=== PATIENT | female | born 1965 | race Caucasian/White ===

== ENCOUNTER 2022-03-27 09:47 | Outpatient (CLI) | payer BC, SELFPAY ==
[2022-03-27 14:10] LABS: Albumin* 4.6 g/dL (3.3-5.0)
[2022-03-27 14:11] LABS: Chloride* 101 mmol/L (96-114); Potassium* 4.9 mmol/L (3.6-5.1)
[2022-03-27 14:13] LABS: Bilirubin Total* 0.6 mg/dL (0.1-1.5); Carbon Dioxide* 30 mmol/L (20-32); Cholesterol* 216 mg/dL (90-199); Creatinine* 0.9 mg/dL (0.5-1.5); Estimated Glomerular Filt Rate 75 ml/min
[2022-03-27 14:14] LABS: Alanine Aminotransferase* 24 U/L (4-35); Alkaline Phosphatase* 64 U/L (40-150); Aspartate Amino Transferase* 29 U/L (12-35); Blood Urea Nitrogen* 12 mg/dL (7-30); Calcium* 9.8 mg/dL (8.4-10.6); Glucose* 92 mg/dL (60-115); HDL Cholesterol* 100 mg/dL (>=50); LDL Cholesterol Calculated 103 mg/dL (<100); Total Protein* 7.1 g/dL (6.0-8.3); Triglycerides* 66 mg/dL (40-149)
[2022-03-27 14:48] LABS: Sodium* 139 mmol/L (135-149)
[2022-03-27 14:59] LABS: Vitamin B12* 724 pg/mL (243-894)
== END 2022-03-27 09:48 | disposition home or self-care (01) ==
PROVIDERS: PCP Physician Assistant Medical; Visit Provider Physician Assistant Medical
DX: Z00.00 Encounter for general adult medical examination without abnormal findings (principal); I10 Essential (primary) hypertension; M79.601 Pain in right arm; R53.1 Weakness; M54.30 Sciatica, unspecified side; R29.898 Other symptoms and signs involving the musculoskeletal system
CPT/HCPCS: 80053; 80061; 82607

== ENCOUNTER 2022-06-26 17:29 | Outpatient (CLI) | payer BC, SELFPAY ==
--- OUTSIDE RECORDS SUMMARY | 2022-06-26 17:32 | XMS_ITS ---
:1965 Author Care Team Providers Name Role Phone Jose Garcia Primary Care Provider Unavail able Allergies Code Code System Name Reaction Severity Status Onset NKDA ? Medications Name Status Start Date Stop Date ? ? methocarbamol 500 mg tablet Active ? Not available TAKE 2 TABLETS BY MOUTH EVERY DAY AT BEDTIME Problems Name Status Onset Date Source ? 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 Myofascial Pain Active 11/20/2017 ? Procedures Date Name Performed by ? 02/06/1995 Cholecystectomy Information not avai lable 08/18/1994 Caesarean Section Information not avai lable 11/20/2017 XR, Orthopantogram [facility] [address] [place] [id number] (Work Place) Results Lab Results Date Name Specimen Result Interpretation Description Value Range Status Address ? ? XR, Orthopantogram ? No observation ? ? ? [place]: [address] ? [employer] ? No observation ? ? ? [place]: [address], [place] Past Encounters None recorded. Social History Tobacco Smoking Status Never Smoker Vaccine List Notes: 12-27-2017 Plan of Care Reminders Provider Appointments None recorded. ? ? Lab None recorded. ? ? Referral None recorded. ? ? Procedures None recorded. ? ? Surgeries None recorded. ? ? Imaging None recorded. ? ? Vitals 05/12/2018 09:00AM FOLLOW UP 30 Height Weight BMI Blood Pressure 5 ft 9 in 207 lbs 30.6 kg/m2 141/98 mm[Hg] 02/07/2018 11:00AM FOLLOW UP 30 Height Weight BMI Blood Pressure 5 ft 9 in 207 lbs 30.6 kg/m2 156/99 mm[Hg] 12/27/2017 11:00AM FOLLOW UP 30 Height Weight BMI Blood Pressure 5 ft 9 in 207 lbs 30.6 kg/m2 138/86 mm[Hg]
--- NOTE | 2022-06-26 18:00 | CRLHL7_ITS ---
For Patients: As a result of the Century Cures Act, medical imaging exams and procedure reports are released immediately into your electronic medical record. You may view this report before your referring provider. If you have questions, please contact your health care provider. BILATERAL SCREENING MAMMOGRAM WITH COMPUTER-AIDED DETECTION AND TOMOSYNTHESIS TECHNIQUE: CC and MLO views were obtained. These mammographic images have been obtained using full-field digital technique. These mammographic images were interpreted with the benefit of computer-aided detection. Breast Tomosynthesis was used in this interpretation. COMPARISON FILM: 04/12/2021, 12/10/2019, 11/19/2018. FINDINGS: There are scattered areas of fibroglandular density IMPRESSION: There is no radiographic evidence for malignancy. ASSESSMENT: BI-RADS Category 1: Negative RECOMMENDATION: Routine screening mammogram in 1 year. A lay language report of this examination will be provided to the patient. Khoa Morris M.D. Diagnostic Radiologist [email or web address] Transcribed: 4:14 pm DW/Dictated by: Khoa Morris MD @ 06/27/2022 8:41:00 AM (Electronically Signed)
== END 2022-06-26 17:30 | disposition home or self-care (01) ==
LOC: MAMMO 17:30
PROVIDERS: PCP Physician Assistant Medical; Visit Provider Physician Assistant Medical
DX: Z12.31 Encounter for screening mammogram for malignant neoplasm of breast (principal)
CPT/HCPCS: 77063; 77067

== ENCOUNTER 2022-08-01 15:30 | Outpatient (RCR) | payer BC, SELFPAY ==
--- NOTE | 2022-04-11 17:33 | OT.OPOE ---
OT Outpatient Ortho Eval OT Outpatient Ortho Eval Start: 04/11/22 16:44 Freq: Status: Active Protocol: Document 04/11/22 16:44 LCN (Rec: 04/11/22 17:28 LCN Desktop) E-signed By Poppy Tejeda, OTR/L, CLT OT OP Ortho Eval Details Type Type Eval Complexity Low Outpatient History/Precautions Insurance Information Insurance Information Blue Cross/Blue Shield Current Condition/Medical Diagnosis Referring Provider Marlena Mendez PA-C Treatment Diagnosis R elbow pain, hand weakness Date of Onset 04/09/22 Medical Conditions HTN Other Conditions Family history of Parkinsons w LBD/maternal. Seeing PT for sciatica also. H/O of R lateral epicondylitis 5 years ago w good recovery until now. Medical/Functional History Medical History Reviewed Yes Prior Level of Function/Mobility [place]. They have grown children 27 y/o son and 24 y/o sons in [facility]. Dtr 24 in [place]/studying fish / wildlife mgmt. 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 Critical Job Demands Pull,Lift,Overhead Reach, Static Sitting Other Critical Job Demands typing, mousing Hobbies horseback riding, horse tacking/grooming, heavy feed/ water mgmt Fitness horseback riding, competitions . Oriented Mental Status No Concerns Ortho Subjective Subjective Subjective Jewels Mauricio is a youthful 57 y/o female who has been noticing increasing pain in R elbow and hand weakness through this summer, getting harder to move 5 gallon buckets of water across yard, R hand tires easily with writing, more effort legibility, typing. R medial elbow sore to rest on arm rests/tables, no numbness. Pain Assessment Pain Present Pain Present Pain Reported Location R Elbow Description Burning,Dull, Achy,Throbbing, Pulling,With Movement, Heaviness Intensity 4 Goniometric Comments Goniometric Comments Goniometric Comments R Gripping 95# w 2/10 medial epicondyle pain in pos 1 and pos 2 similar. Improves to 100#, no pain with elbow counterpressure cuff in place. L Night Supervisor is 95 pos 1 and 90 pos 2. [place] pinch is 16# B. 3 pt pinch is 22# B; Has base of R CMC tenderness during 3 pt pinch. ROM-- Is WNL for all planes, except hyper mobile pattern at WR FL, touches TH to Radius B. No history of shoulder dislocations. MMT-- Balanced strength for triceps, sup/pronation, WE, WF , RD and UD. Tender of lateral epicondyle with resisted pronation and biceps flexion, w 5-/5 MMT. Edema Assessment Additional Information Comments Has point tenderness at tricep insert, ulnar groove, upper CET, upper common flexor tendon 1/3 of muscle bulk, base of R CMC. OT Objective Data Sensation Sensation Assessment Summary Comments Has mild numbness patch at palmar wrist crease. Notes tremor is small finger during long holds of digit + wrist extension. Upper Extremity Special Tests Tenosynovitis Wrist Finklestein Test Negative Left,Negative Right Ulnar Nerve Froment's Sign Negative Left,Negative Right OT Problems Problems Problems Decreased Strength,Decreased Range of Motion,Decreased Fine Motor,Sensory Sensitivity, Lifting,Gripping Other Problems Writing,Computer Patient Potential Excellent Assessment Assessment Assessment Given Jewels's diagnosis of R epicondylitis (mixed, alternating pattern between R lateral/medial sides, periscapular tightness, CMC pain, mild wrist numbness and hypermobility of R WR FL) and ?difficulty with edema, pain, ROM and strength endurance loss of R hand/wrist/elbow , she would benefit from skilled OT to address these areas. Occupational Therapy Treatment Plan - OP Potential Rehabilitation Potential Excellent Set Goals Goals Set with Patient Yes Goals Goals In 8 weeks, pt will demonstrate:? 1) Decreased pn to <2/10 80% of the time with sustained gripping, carrying feed/water, writing and typing. 2) I HEP for stretching, gradual strengthening and self mgmt strategies. 3) improved carrying of 40# water pails, writing endurance /legibility x 10 min with R elbowm thumb pain < 1/10. 4) ??Pt to be fit with functional bracing (for CMC, wrist, elbow) and use adaptive strategies to protect joint integrity to support less pain with ADL. Progress set Treatment Plan Treatment Plan Evaluation,Edema Control, Iontophoresis,Joint Mobilization,Manual Therapy, Splinting,Ultrasound, Therapeutic Activities,Self- Care/Home Management,Education Expected Frequency 1-2x Week Expected Duration 6-8 Weeks Comment Summary Scapular stretches, scapular mobilty, check Durkan's and CMC scrub test, plasticator endurance x 5 reps, hand writing speed/ legibility, Look at Pilates/ Fitness. Certification Certification I Certify That: Therapy Services Provided, Therapy Plan Established, Therapy Plan Reviewed
--- NOTE | 2022-08-01 17:09 | OT.OPODN ---
OT Outpatient Ortho Daily Note OT Outpatient Ortho Daily Note Start: 04/11/22 16:44 Freq: Status: Active Protocol: Document 08/01/22 16:35 LCN (Rec: 08/01/22 17:05 LCN Desktop) E-signed By Poppy Tejeda, OTR/L, CLT Type of Note Type of Note Type of Note Daily Note,Discharge Note Visit Number [id number] Insurance Information Insurance Information Blue Cross/Blue Shield Outpatient History/Precautions Current Condition/Medical Diagnosis Referring Provider Marlena Mendez PA-C Treatment Diagnosis R elbow pain, hand weakness Date of Onset 04/09/22 Medical Conditions HTN Other Conditions Family history of Parkinsons w LBD/maternal. Seeing PT for sciatica also. H/O of R lateral epicondylitis 5 years ago w good recovery until now. Medical/Functional History Medical History Reviewed Yes Prior Level of Function/Mobility [place]. They have grown children 27 y/o son and 24 y/o sons in [facility]. 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 Critical Job Demands Pull,Lift,Overhead Reach, Static Sitting Other Critical Job Demands typing, mousing Hobbies horseback riding, horse tacking/grooming, heavy feed/ water mgmt Fitness horseback riding, competitions . Oriented Mental Status No Concerns Mental Status Comments Wants to start doing physical training, no current fitness regimen. Ortho Subjective Subjective Subjective Pt has seen chiropractor Priscila Dupree for additional visits, massage therapy 2x/ month ( working on R anterior scapula tilt, flattened thoracic kyphosis, continues to have fatigue that happens in RF/SF. Finding these modalities find helpful, working on adjustments cervical to R wrist. Continues with her HEP, added wall angle, do ing well with knee based plank holds x 10 deep breaths 3 sets. Has very occasional tender twinges at medial epicondyle, while opening barn door, moving feed pails, pouring coffee). Pt estimates return to 75%. Pain Assessment Pain Present Pain Present Pain Reported Location R Elbow Description Dull, Achy,Throbbing,Pulling, With Movement Intensity 1 OT OP Daily Ortho Note/Assessment Self-Care/Home Management Self-Care/Home Management Minutes ( 0 minutes) Self-Care/Home Management Comments . Therapeutic Exercise Therapeutic Exercise Minutes (minutes) 5 Therapeutic Exercise Comments Reviewed wall harry and plank holds from knees with scapulae applied to rib cage ( good form no tactile or verbal cues needed), holding for 10 breath cycles per set. Progressed to toe level. Ultrasound Intensity (w/cm2) 0 Ultrasound Comments as needed to support reduction of edema for tissue healing and improved tissuemobility Iontophoresis Iontophoresis Duration (minutes) 0 Manual Therapy Manual Therapy Minutes (minutes) 32 Manual Therapy Comments OTR cont STM MFR, pin and stretch techniques to mobilize soft tissue surrounding joint capsule,?ligament structures and muscle groups to support freedom of movement and healing of structures of the R rhomboid, levator, scalenes, clavicular space, pec minor, teres minor, to long head of triceps, extensor mcscle bulk and latissimus dorsi. Goniometric Comments Goniometric Comments Goniometric Comments 08/01/22-- Risk Advisor in 1st position is 82# R and 80# L, no pain. Pos 2 is 98# R and 85# L. [place] pinch is 21# R and 17# L. 3pt pinch is 21# B. RF/SF to TH pinch is 16.5 # R and 14# L. MMT of RF/SF adduction has medium pressure R and strong pressure L. MMT for all wrist elbow and shoulder planes is 5/5. 06/05/22-- MMT of of WR EX, FL , RD, UD, supination, pronation are balanced, 5/5 MMT no pain. Weakness noted at ulnar intrinsics, improving . 05/29/22-- 3 pt pinch 24# R and 23# L. 3 pt RF/SF 14# R and 18 # L. 05/25/22-- Risk Advisor pos 1 92#. Pos 2- 96#, no painkey [pinch 20# R and 3 pt is 21# R. Capillary refill delayed on R RF/SF. MMT balanced non painful for WR EX, FL RD< UD and sup and pronation planes. Adductors at RF/SF weak, Mild hypertrophy at hypo thenar eminance. No provocation with ulnar nerve glides. Has life long Raynauds. 04/23/22-- Check of process inspector fatigue 5 reps 95/90/85/90/90 R and 90/85/90/90/85 L. Handwriting speed 104 characters in 1 minute, WNL is 70-100, Legibility is 18/20, pt satisified. 04/18/22- Risk Advisor strength in pos 1 improves to 90 # (from 86# at start of session) and pos 2 to 110 (from 85) with k taping in place. NO pain with process inspector testing. 9 hole peg test 18.4 L and 18.9 sec R ( WNL level is 18-19) 04/11/22- R Gripping 95# w 2/10 medial epicondyle pain in pos 1 and pos 2 similar. Improves to 100#, no pain with elbow counterpressure cuff in place. L Risk Advisor is 95 pos 1 and 90 pos 2. Westbrook pinch is 16 # B. 3 pt pinch is 22# B; Has base of R CMC tenderness during 3 pt pinch. ROM-- Is WNL for all planes, except hyper mobile pattern at WR FL, touches TH to Radius B. No history of shoulder dislocations. MMT-- Balanced strength for triceps, sup/pronation, WE, WF , RD and UD. Tender of lateral epicondyle with resisted pronation and biceps flexion, w 5-/5 MMT. Edema Assessment Additional Information Comments Has point tenderness at tricep insert, ulnar groove, upper CET, upper common flexor tendon 1/3 of muscle bulk, base of R CMC. Upper Extremity Special Tests Tenosynovitis Wrist Finklestein Test Negative Left,Negative Right Ulnar Nerve Froment's Sign Negative Left,Negative Right Upper Extremity Special Tests Comments Comments HEP-- 07/19/22-- plank holds from knees with scapulae applied to rib cage 06/26/22-- posterior axilla, modified down dog with elbows supported 05/29/22-- foam rolling hip to teres minor to triceps margin 05/25/22-- Putty red intrinsics , hooked flexion, flat fist, adductors, and gross digit extension. 05/18/22-- biceps and triceps punch. Stacking ribs over pelvis 05/09/22-- Cervical lat flex + door way pec stetch 04/30/22- [place] band EX/FL/ RD/UD. 04/23/22-- eccentric lowering WR EX, WR FL and hammer turns 16 oz. 04/18/22 pink putty process inspector, 20 pt, 2pt , westbrook. OT Problems Problems Problems Decreased Strength,Decreased Range of Motion,Decreased Fine Motor,Sensory Sensitivity, Lifting,Gripping Other Problems Writing,Computer Patient Potential Excellent Assessment Assessment Assessment Pt has one more session before discharge. Feels god to be able to progress to core strengthening. Given Jewels's diagnosis of R epicondylitis (mixed, alternating pattern between R lateral/medial sides, periscapular tightness, CMC pain, mild wrist numbness and hypermobility of R WR FL) and ?difficulty with edema, pain, ROM and strength endurance loss of R hand/wrist/elbow , she would benefit from skilled OT to address these areas. Occupational Therapy Treatment Plan - OP Potential Rehabilitation Potential Excellent Set Goals Goals Set with Patient Yes Goals Goals In 8 weeks, pt will demonstrate:? 1) Decreased pn to <2/10 80% of the time with sustained gripping, carrying feed/water, writing and typing. 2) I HEP for stretching, gradual strengthening and self mgmt strategies. 3) improved carrying of 40# water pails, writing endurance /legibility x 10 min with R elbowm thumb pain < 1/10. 4) ??Pt to be fit with functional bracing (for CMC, wrist, elbow) and use adaptive strategies to protect joint integrity to support less pain with ADL. Progress set Treatment Plan Treatment Plan Evaluation,Edema Control, Iontophoresis,Joint Mobilization,Manual Therapy, Splinting,Ultrasound, Therapeutic Activities,Self- Care/Home Management,Education Expected Frequency 1-2x Week Expected Duration 6-8 Weeks Comment Summary Check check suboccipital ridge , UE traction and rib cage MFR . Scapular stretches, scapular mobility, check SF/RF pinch, hand writing speed/ legibility, Look at Pilates/ Fitness. OT Treatment Minutes Treatment Minutes Untimed Treatment Minutes 0 Timed Treatment Minutes 37 Total Treatment Minutes 37 Occupational Therapy Billing Units Billing Units Iontophoresis 0 Manual Therapy 2 Self Care/Home Management 0 Therapeutic Exercise 0 Ultrasound 0 Certification Certification I Certify That: Therapy Services Provided, Therapy Plan Established, Therapy Plan Reviewed Discharge Note Discharge Note Discharge Summary After 21 visits of skilled OT Jewels demonstrates:? 1) Decreased pn to <2/10 80% of the time with sustained gripping, carrying feed/water, writing and typing. (GOAL MET --Pt has seen chiropractor Priscila Dupree for additional visits, massage therapy 2x/ month ( working on R anterior scapula tilt, flattened thoracic kyphosis, continues to have fatigue that happens in RF/SF. Finding these modalities find helpful, working on adjustments cervical to R wrist. Continues with her HEP, added wall angle, do ing well with knee based plank holds x 10 deep breaths 3 sets. Has very occasional tender twinges at medial epicondyle, while opening barn door, moving feed pails, pouring coffee). Pt estimates return to 75%. 2) I HEP for stretching, gradual strengthening and self mgmt strategies. (GOAL MET 06/13) 3) improved carrying of 40# water pails, writing endurance /legibility x 10 min with R elbow/ thumb pain < 1/10. ( Still has twinges of pain, and RF/SF endurance issues with typing, writing, but improved. Risk Advisor in 1st position is 82# R and 80# L, no pain. Pos 2 is 98# R and 85# L. [place] pinch is 21# R and 17# L. 3pt pinch is 21# B. RF/SF to TH pinch is 16.5 # R and 14# L. MMT of RF/SF adduction has medium pressure R and strong pressure L. MMT for all wrist elbow and shoulder planes is 5/5. ). 4) ??Pt to be fit with functional bracing (for CMC, wrist, elbow) and use adaptive strategies to protect joint integrity to support less pain with ADL. (Uses elbow counter pressure cuff for heavy lifting, shovelling tasks) Date of First Visit for Therapy 04/11/22 Date of Last Visit for Therapy 08/01/22 Initial Primary Functional Limitations/ From al 04/11/22--Jewels Concerns Hang is a youthful 57 y/o female who has been noticing increasing pain in R elbow and hand weakness through this summer, getting harder to move 5 gallon buckets of water across yard, R hand tires easily with writing, more effort legibility, typing. R medial elbow sore to rest on arm rests/tables, no numbness. Initial Pain Level 4 Pain Level at Discharge 1 Interventions Provided During Treatment Heat,Ice/Cold/Vasopneumatic, Iontophoresis,Joint Mobilization,Manual Therapy, Orthotics/Braces,Therapeutic Exercise,Ultrasound,Self Care/ Home Management Recommendations/Reason for Discharge Met All Therapy Goals,Progress Cont w/HEP Discharge Instructions Sx not fully resolved. Will continue to address thoracic flattened kyphosis, anterior scap position w R with massage therapy and chiropractic approaches.
== END 2022-09-05 14:28 | disposition home or self-care (01) ==
PROVIDERS: PCP Physician Assistant Medical; Visit Provider Physician Assistant Medical
DX: M54.40 Lumbago with sciatica, unspecified side (principal); Z51.89 Encounter for other specified aftercare
CPT/HCPCS: 97033; 97035; 97110; 97140; 97161; 97165; 97535; X5282

== ENCOUNTER 2022-11-22 07:40 | Outpatient (CLI) | payer BC, SELFPAY ==
--- NOTE | 2022-11-22 08:00 | CRLHL7_ITS ---
For Patients: As a result of the Century Cures Act, medical imaging exams and procedure reports are released immediately into your electronic medical record. You may view this report before your referring provider. If you have questions, please contact your health care provider. INDICATION: Chronic shoulder pain. TECHNIQUE: Axial T1 and PD fat-sat, coronal PD, T2 and PD fat sat and sagittal PD and T2 left shoulder sequences. FINDINGS: Rotator cuff: Thin low grade interstitial tear of the supraspinatus. Some minor surrounding tendinosis. No high-grade partial or full-thickness tear. Infraspinatus and teres minor are normal. Subscapularis has some minimal tendinosis along the margins and in the substance at the insertion. No muscle atrophy or edema. - Acromioclavicular joint and coracoacromial arch: Flat type 1 acromial undersurface. Acromial humeral distance is 6 mm. Normal thickness of the coracoacromial ligament. Trace fluid and edema in the bursa. Small joint effusion and capsular hypertrophy with subchondral edema and cysts the moderately degenerated AC joint. Joint hypertrophy and osteophyte slightly indent the supraspinatus. Intact coracoclavicular ligaments. Subcoracoid interval is 6 mm. - Biceps labral complex: Within limitations of a non arthrogram study labral signal and morphology appear normal with intact anchor and appropriately located biceps tendon. - Glenohumeral joint: Anatomic alignment. Uniform cartilage. Physiologic fluid. No capsulitis. - Bones and soft tissues: Deltoid bulk and signal is normal. No fracture or bone lesion. Visualized axilla is clear. 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 Minor tendinopathy of the supraspinatus with a short linear interstitial low-grade partial tear of the substance posterior distal tendon. Dictated by Lizandro Vines MD @ 11/22/2022 4:53:49 PM (Electronically Signed)
--- NOTE | 2022-11-22 08:30 | CRLHL7_ITS ---
For Patients: As a result of the Century Cures Act, medical imaging exams and procedure reports are released immediately into your electronic medical record. You may view this report before your referring provider. If you have questions, please contact your health care provider. INDICATION: Right arm weakness. TECHNIQUE: Multiplanar multisequence noncontrast MR images acquired through the cervical spine. COMPARISON: None. FINDINGS: Mild straightening of the cervical lordosis. Mild rightward cervical curvature. Vertebral heights preserved. No acute fracture. No T1 hypointense marrow replacing lesions or marrow edema. The cervical cord is normal in signal intensity. C2-3: No spinal canal or neural foraminal narrowing. C3-4: Shallow posterior disc osteophyte complex. Right greater left uncinate spurring. No spinal canal narrowing. Minimal right without left neural foraminal narrowing. C4-5: Minimal uncinate spurring. [id number] right and mild left facet arthropathy. No spinal canal or neural foraminal narrowing. C5-6: Mild retrolisthesis. Moderate disc height loss. Broad-based posterior disc osteophyte complex. Thickening ligamentum flavum. Bilateral uncinate spurring. Mild facet arthropathy. Mild spinal canal narrowing. [id number] left and mild right neural foraminal narrowing. C6-7: Disc degeneration and mild disc height loss. Shallow posterior disc osteophyte complex. Bilateral uncinate spurring. Mild facet arthropathy. No spinal canal narrowing. Mild right without left neural foraminal narrowing. C7-T1: Trace anterolisthesis. Moderate facet arthropathy. No spinal canal or neural foraminal narrowing. IMPRESSION: 1. Multilevel cervical spondylosis without high-grade spinal canal or neural foraminal stenosis. 2. At C5-6, mild to moderate left and mild right neural foraminal narrowing. 3. At C7-T1, moderate bilateral facet arthropathy. Dictated by Caesar Gibson MD @ 11/22/2022 10:01:39 PM (Electronically Signed)
--- NOTE | 2022-11-22 09:15 | CRLHL7_ITS ---
For Patients: As a result of the Century Cures Act, medical imaging exams and procedure reports are released immediately into your electronic medical record. You may view this report before your referring provider. If you have questions, please contact your health care provider. INDICATION: Back pain. Radiculopathy. TECHNIQUE: Multiplanar multisequence noncontrast MR images acquired through the lumbar spine. COMPARISON: None. FINDINGS: The lumbar lordosis is preserved. Vertebral heights maintained. No acute fracture. No T1 hypointense marrow replacing lesions or marrow edema. Normal conus terminates at L1-2. T12-L1 and L1-2: No spinal canal or neural foraminal narrowing. L2-3: Shallow posterior disc bulge. Mild facet arthropathy. No spinal canal or neural foraminal narrowing. L3-4: Mild disc degeneration and disc height loss. Shallow posterior disc bulge. Dorsal annular fissure. Mbwg-sm-idcmfljx facet arthropathy. Mild spinal canal and lateral recess narrowing. Alwk-mp-udpiddez bilateral neural foraminal narrowing. L4-5: Grade 1 anterolisthesis measuring 4 mm. Mild disc degeneration. Shallow posterior disc bulge. Advanced bilateral facet arthropathy. Mild spinal canal and lateral recess narrowing. Eorw-xi-ninjpurk bilateral neural foraminal narrowing. L5-S1: Mild disc degeneration. Advanced right and moderate left facet arthropathy. No spinal canal or neural foraminal narrowing. Sacroiliac joint degenerative changes. IMPRESSION: 1. Multilevel lumbar spondylosis without spinal canal stenosis. 2. At L3-4, dxxa-hx-mxtjlvxn bilateral neural foraminal narrowing. 3. At L4-5, mild to moderate bilateral neural foraminal narrowing. Grade 1 anterolisthesis and advanced facet arthropathy. 4. At L5-S1, advanced right and moderate left facet arthropathy. Dictated by Caesar Gibson MD @ 11/22/2022 10:07:49 PM (Electronically Signed)
== END 2022-11-22 07:41 | disposition home or self-care (01) ==
LOC: MRI 07:41
PROVIDERS: PCP Physician Assistant Medical; Visit Provider Physician Assistant Medical
DX: M25.511 Pain in right shoulder (principal); M47.896 Other spondylosis, lumbar region; M51.26 Other intervertebral disc displacement, lumbar region; M47.812 Spondylosis without myelopathy or radiculopathy, cervical region; M50.23 Other cervical disc displacement, cervicothoracic region; M19.011 Primary osteoarthritis, right shoulder; R29.898 Other symptoms and signs involving the musculoskeletal system; M54.30 Sciatica, unspecified side; M54.9 Dorsalgia, unspecified
CPT/HCPCS: 72141; 72148; 73221

== ENCOUNTER 2023-01-17 13:47 | Outpatient (REF) | payer BC, SELFPAY ==
[2023-01-17 17:27] LABS: Free T4 Free Thyroxine* 1.05 ng/dL (0.70-1.85)
[2023-01-18 15:47] LABS: Ceruloplasmin 24 mg/dL (16-45)
[2023-01-18 20:54] LABS: Copper, Serum/Plasma 114.9 ug/dL (80.0-155.0)
== END 2023-01-17 13:48 | disposition home or self-care (01) ==
LOC: NPINS 13:47
PROVIDERS: PCP Physician Assistant Medical; Visit Provider Psychiatry & Neurology Neurology
DX: R29.898 Other symptoms and signs involving the musculoskeletal system (principal); R27.9 Unspecified lack of coordination; R20.0 Anesthesia of skin; R53.1 Weakness
CPT/HCPCS: 82390; 82525; 84439; 84443

== ENCOUNTER 2023-01-28 09:09 | Outpatient (CLI) | payer BC, SELFPAY ==
--- NOTE | 2023-01-28 09:15 | CRLHL7_ITS ---
For Patients: As a result of the Century Cures Act, medical imaging exams and procedure reports are released immediately into your electronic medical record. You may view this report before your referring provider. If you have questions, please contact your health care provider. INDICATION: Leg weakness. Incoordination. TECHNIQUE: Multiplanar multisequence noncontrast MR images acquired through the brain. COMPARISON: None. FINDINGS: Prominence of the ventricles and sulci compatible with minimal diffuse cerebral volume loss. No mass effect or midline shift. No parenchymal signal abnormalities. No diffusion restriction to suggest acute infarction. No intracranial hemorrhage or pathologic extra-axial fluid collection. The major arterial flow voids of the skullbase are preserved. The globes are symmetric. Mild right maxillary sinus mucosal thickening. Trace left mastoid fluid. IMPRESSION: No acute infarction, mass effect, or intracranial hemorrhage. Dictated by Caesar Gibson MD @ 01/28/2023 10:16:01 AM (Electronically Signed)
== END 2023-01-28 09:10 | disposition home or self-care (01) ==
LOC: MRI 09:11
PROVIDERS: PCP Physician Assistant Medical; Visit Provider Psychiatry & Neurology Neurology
DX: R27.9 Unspecified lack of coordination (principal); R53.1 Weakness; R29.898 Other symptoms and signs involving the musculoskeletal system; R20.0 Anesthesia of skin
CPT/HCPCS: 70551

== ENCOUNTER 2023-04-01 08:10 | Outpatient (CLI) | payer BC, SELFPAY | END 2023-04-01 08:11 | disposition home or self-care (01) | LOC: NFLDREF 04-03 02:05 | PROVIDERS: PCP Physician Assistant Medical; Referring Provider Physician Assistant Medical; Visit Provider Physician Assistant Medical | DX: Z00.00 Encounter for general adult medical examination without abnormal findings (principal); I10 Essential (primary) hypertension; F41.9 Anxiety disorder, unspecified; R29.898 Other symptoms and signs involving the musculoskeletal system; Z13.6 Encounter for screening for cardiovascular disorders | CPT/HCPCS: 80053; 80061; 84443 ==

== ENCOUNTER 2023-09-26 13:45 | Outpatient (RCR) | payer BC, SELFPAY ==
--- NOTE | 2023-09-20 10:07 | PT.OPDN ---
PT [facility] Daily Note PT [facility] Daily Note Start: 08/01/23 16:45 Freq: Status: Active Protocol: Document 09/20/23 07:54 CJT (Rec: 09/20/23 08:40 CJT [id number]) E-signed By Fidel Gray, PT PT OP Daily Progress Note Visit Information Note Type Recert/Progress Note Visit Number 8 Insurance Authorized Visits 50 Physician Authorized Visits eval and treat Insurance Information Recert Due Date 10/31/23 Insurance Name [employer] Medical Diagnosis Tendonapathy of right rotator cuff Treating Diagnosis Right shoulder pain and stiffness Referring Marlena Wilson PA-C Subjective Subjective Thinks she may have overdone her workout the other day for her arms and has been pretty sore. Otherwise feeling good today. Continues to feel that she has a pinched nerve in her R UE with numbness noted in fingers of R hand this AM. Pain Comments 11/28 Preferred Name [facility] Home Exercise Home Exercise Comments Access Code: [email or web address] Objective Other/Pertinent Objective R shoulder strength - 5/5 MMT for all *pain note with abduction and empty can Whipple: negative Wells/Cody: mildly positive R Patient Instructed in Risks/Benefits Yes Therapeutic Exercise Therapeutic Exercise Minutes (minutes) 0 Manual Therapy Techniques Manual Therapy Minutes (minutes) 32 Manual Therapy Techniques STM to R>L suboccipitals, cervical paraspinals, scalenes , upper trap, levator, and R rhomboids, supraspinatus tendon. and teres gruop to reduce tissue tone and improve extensibility. Gentle manual distraction of cervical spine and reverse UT stretch to further reduce tissue tension. Mechanical Traction Mechanical Traction Minutes (minutes) 14 Mechanical Traction Treatment Cervical Traction,Patient Supine,Intermittent Traction, Step Up & Step Down Mechanical Traction Comments 20 lbs max draw weight; pt tolerates well. Treatment Minutes Timed Code Treatment Minutes 46 Total Treatment Time 46 Billing Units Manual Therapy Units 2 Therapeutic Exercise Units 0 Mechanical Traction Units 1 Assessment/Impression Assessment/Impression [facility] has showed minimal progress during her time in therapy thus far. She continues to have intermittent numbness/tingling into R hand that does not change with upper limb tension testing and does not change with various treatments. Pt and I have discussed that she is exhibiting some symptoms that resemble early Parkinson's disease symptoms. Pts mother did have PD so this has been on Jewels's mind over the past 10 months. Pts last MRI of her shoulder was early November 2022. I do feel that a repeat MRI of the R shoulder would be helpful in determining if the extent of her tear in the supraspinatus muscle has progressed as strengthening of the RTC has not reduced her painful symptoms in the R shoulder. However, testing today reveals full strength in all planes of R shoulder with pain noted with abduction and empty can. Wells/Cody remains positive for signs of impingement. Today we attempted mechanical traction for cervical spine and pt tolerated this well. Will plan to repeat this treatment option for pts final scheduled appointment next week. Recommend continued PT services to address deficits and return pt to highest level of function. Plan of Care Physical Therapy Goals STG - To be completed in 3 weeks: -Pt will report a decrease in pain by a factor of 2 so that they can reach for items on desk without pain exacerbation . MET LTG - To be completed in 6 weeks: -Pt will demonstrate 5/5 MMT for R shoulder abduction to provide greater support to shoulder and scapula. MET -Pt will demonstrate ability to reach into upper kitchen cupboards without 0/10 pain. -Pt will be I with HEP so that they may I manage progression of symptoms. -Pt will demo increased shoulder elevation by 10 degrees bilaterally so that she may reach for cans of souop on top shelf in pantry without restrictions. Daily Plan of Care Continue per POC Recertification Information Continued Plan of Care and Interventions Review HEP program and progress as indicated. Plan to reassess shoulder ROM and strength next session. Address scapular strength deficits ( rows with TB). Continue with manual therapy to R shoulder ( assess posterior muscles) and cervical spine.
== END 2023-12-17 15:23 | disposition home or self-care (01) ==
PROVIDERS: PCP Physician Assistant Medical; Visit Provider Physician Assistant Medical
DX: M67.911 Unspecified disorder of synovium and tendon, right shoulder (principal); M25.511 Pain in right shoulder; M25.611 Stiffness of right shoulder, not elsewhere classified; Z51.89 Encounter for other specified aftercare
CPT/HCPCS: 97012; 97110; 97140; 97161

== ENCOUNTER 2024-04-07 13:16 | Outpatient (CLI) | payer BC, SELFPAY ==
--- OUTSIDE RECORDS SUMMARY | 2024-04-07 13:20 | XMS_ITS | Encounter Summary ---
Author Organization [facility] Address [address] [place] [id number] Care Team Providers Care Systematic Theology Professor Name Role Phone Marlena Mendez PA-C Primary Care Provider [phone] Encounter Details Date Type Department Care Team (Latest Contact Info) Description 01/06/2024 Travel Social History Tobacco Use Types Packs/Day Years Used Date Smoking Tobacco: Never Assessed PHQ-2 Answer Date Recorded PHQ-2 Score 0 01/06/2024 Adolescent Education Answer Date Record ed Getting School Help Needed Not on file 01/05 Sex and Gender Information Value Date Recorded Sex Assigned at Not on file Gender Identity Not on file Sexual Orientation Not on file documented as of this encounter Plan of Treatment Not on file documented as of this encounter Visit Diagnoses Not on filedocumented in this encounter Care Teams Systematic Theology Professor Relationship Specialty Start Date End Date Marlena Mendez PA-C [address] [place] [address] PCP - General 01/06/24 documented as of this encounter
--- OUTSIDE RECORDS SUMMARY | 2024-04-07 13:20 | XMS_ITS | Encounter Summary ---
Author Organization [facility] Address [address] [place] [id number] Care Team Providers Care Race Starter Name Role Phone Unavailable Primary Care Provider Unavailabl e Reason for Referral * Consultation (Routine) - Pending Review Specialty Diagnoses / Procedures Referred By Nancy chavez Referred To Contact Diagnoses Chronic pain in left foot Marlena Mendez PA-C [address] [place] [address] Alonzo Larose DPM [id number] [facility] [address] [place] [address] Referral ID Status Reason Start Date Expiration Date V isits Requested Visits Authorized [id number] Pending Review 12/30/2023 12/29/2024 1 1 Question Answer Consult Type: Foot/Ankle Type: Per Protocol Scheduling Instructions: [facility] Tankage Grinder will call you to coordinate your care as prescribed by your provider. A communications representative will call you within 2 business days to help you schedule your appointment, or you may contact the Tankage Grinder Extraction Supervisor at: . Comments Referral to Dr. Larose for Chronic Pain in Left Foot from Marlena Mendez PA-C at [facility] Ph. [phone] [facility] Tankage Grinder will call you to coordinate your care as prescribed by your provider. A communications representative will call you within 2 business days to help you schedule your appointment, or you may contact the Tankage Grinder Extraction Supervisor at: . Encounter Details Date Type Department Care Team (Late st Contact Info) Description 12/30/2023 Transcribe Orders GENERIC EXTERNAL DATA DEPARTMENT Provider, Generic External Data Chronic pain in left foot (Primary Dx) Social History Tobacco Use Types Packs/Day Years Used Date Smoking Tobacco: Never Assessed Sex and Gender Information Value Date Recorded Sex Assigned at Not on file Gender Identity Not on file Sexual Orientation Not on file documented as of this encounter Plan of Treatment Scheduled Referrals Name Type Priority Associated Diagnoses Orde r Schedule Orthopedic Tankage Grinder Referral Referral Routine Chronic pain in left foot Expected: 12/30/2023 (Approximate), Expires: 12/29/2024 documented as of this encounter Visit Diagnoses Diagnosis Chronic pain in left foot- Primary Pain in limb documented in this encounter
--- OUTSIDE RECORDS SUMMARY | 2024-04-07 13:20 | XMS_ITS | Encounter Summary ---
Author Organization [facility] Address [address] [place] [address]. [place] [address] Care Team Providers Care Pole Framer Machine Name Role Phone Unavailable Primary Care Provider Unavailabl e Encounter Details Date Type Department Care Team (Late st Contact Info) Description 12/30/2023 Medical Correspondence [facility] [address] [place] [id number] Scan, Non-Provider Social History Tobacco Use Types Packs/Day Years [...]
--- OUTSIDE RECORDS SUMMARY | 2024-04-07 13:20 | XMS_ITS | Encounter Summary ---
Author Organization [facility] Address [address] [place] [address] Care Team Providers Care Renewable Energy Technician Name Role Phone Marlena Mendez PA-C Primary Care Provider [phone] Reason for Visit * Reason Comments Pain * Consultation (Routine) - Pending Review Specialty Diagnoses / Procedures Referred By Nancy chavez Referred To Contact Diagnoses Chronic pain in left foot Marlena Mendez PA-C [address] [place] [address] Alonzo Grimm DPM [phone] [place] [id number] Referral ID Status Reason Start Date Expiration Date V isits Requested Visits Authorized [id number] Pending Review 12/30/2023 12/29/2024 1 1 Encounter Details Date Type Department Care Team (Late st Contact Info) Description 01/06/2024 10:00 AM CDT Office Visit [facility] Podiatry [address] [place] [address] Alonzo Grimm DPM [phone] [place], [place] [id number] Callus (Primary Dx); Chronic pain in left foot Social History Tobacco Use Types Packs/Day Years Used Date Smoking Tobacco: Never Assessed PHQ-2 Answer Date Recorded PHQ-2 Score 0 01/06/2024 Adolescent Education Answer Date Record ed Getting School Help Needed Not on file 01/05 Sex and Gender Information Value Date Recorded Sex Assigned at Not on file Gender Identity Not on file Sexual Orientation Not on file documented as of this encounter Last Filed Vital Signs Vital Sign Reading Time Taken Comments Blood Pressure 124/70 01/06/2024 10:02 AM CDT Pulse - - Temperature - - Respiratory Rate - - Oxygen Saturation - - Inhaled Oxygen Concentration - - Weight 77.1 kg (170 lb) 01/06/2024 10:02 AM CDT Height 174 cm (5' 8.5) 01/06/2024 10:02 AM CDT Body Mass Index 25.47 01/06/2024 10:02 AM CDT documented in this encounter Patient Instructions * Patient Instructions* Ekaterina Ware MA - 01/06/2024 10:00 AM CDT Images from the original note were not included. Thank you for choosing [facility] Podiatry / Foot & Ankle Surgery! [facility] LOCATIONS: [facility] (Saturday) TRIAGE LINE: [phone] [address] [facility] APPOINTMENTS: [phone] [place] sun [address] RADIOLOGY: [phone] PHYSICAL THERAPY: [phone] SET UP SURGERY: [phone] [place] [facility] (Sat- AM-) BILLING QUESTIONS: [phone] [id number] [facility] [address] FAX: [phone] [place] [address] [facility]: [phone] PLANTAR FASCIITIS What is plantar fasciitis? Plantar fasciitis is often referred to as heel spurs or heel pain. Plantar fasciitis is a very common problem that affects people of all foot shapes, age, weight and activity level. Pain may be in the arch or on the weight-bearing surface of the heel. The pain maycome on without injury or identifiable cause. Pain is generally present when first getting out of bed in the morning or up from a seated break. What causes plantar fasciitis? The plantar fascia is a dense fibrous band of tissue that stretches across the bottom surface of the foot. The fascia helps support the foot muscles and arch. Plantar fasciitis is thought to be caused by mechanical strain or overload. Frequent walking without shoes or wearing unsupportive shoes is thought to cause structural overload and ultimately inflammation of the plantar fascia. Some people have heel spurs that can be seen on x-ray. The heel spur is actually a minor component of plantar fascitis and is largely ignored. How long will this last? Plantar fasciitis can last from one day to a lifetime. Some people get intermittent fascitis that is very short-lived. Others suffer daily for years. Excessive body weight, frequent bare foot walking, long hours on the feet, inadequate shoes, predisposing foot structures and excessive activity suchas running are all potential issues that lead to chronic and/or recurring plantar fascitis. Having plantar fasciitis means that you are forever prone to this problem and will require modification of some of the above factors. Most people seek treatment within one to four months. Healing usually requires a similar one to four month time frame. Healing time is relative to the amount of effort spent treating the problem. What can I do? The easiest solution is to stop walking around your home without shoes. Plantar fasciitis is largely a shoe problem. Shoes are either not being worn often enough or your current shoes are inadequate for your weight, foot structure or activity level. The majority of shoes on the market today are notsufficient to resist development of plantar fasciitis or to promote healing. Assume that your current shoes are inadequate and will need to be replaced. Even high quality shoes wear out with 6 monthsto one year of frequent use. Weightloss is another option. Losing ten pounds in the next two monthsmay be enough to resolve the problem. Ice applied to the area of pain two to three times per day for ten minutes each session can be very helpful. This should continue until the problem resolves. Achilles tendon stretching is essential. Stretch multiple times daily to promote healing and to preventrecurrence in the future. What if this does not help? Medical treatments often include custom arch supports, cortisone injections, physical therapy, splints to be worn in bed, prescription medications and surgery. The home treatments listed above will be necessary regardless of these advanced medical treatments. Surgery is rarely needed but is very helpful in selected cases. Heel pain in my future? Plantar fasciitis is highly recurrent. Risk factors often continue, including return to bare foot walking, inadequate shoes, excessive body weight, excessive activities, etc. Your life style and footstructure may predispose you to recurrent plantar fasciitis. A daily prevention regimen can be veryhelpful. Ongoing use of shoe inserts, careful attention to appropriate shoes, daily Achilles stretching, etc. may prevent recurrence. Prompt attention at the earliest warning signs of heel pain can resolve the problem in as short as a few days. Below are some exercises for Plantar fasciitis: Stair exercise You can step on the stairs with the ball of your foot and hold your position for at least 15 seconds, then slowly step down with the heels of your foot. You can do this daily and as often as you want. Plantar fasciitis exercise equipment and handout materials are useful in relieving pain. Picking the towel Plantar fasciitis exercise equipment and handout teach you how to exercise by picking the towel. You can sit comfortably and then pick the towel with your toes. Do this at least 10 to 20 times regularly. You can use any object other than a towel as long as the material can be soft and you can pick it up with your toes. Rolling the bottle or ball You can get a small ball or bottle and then roll it with your foot. Do this daily for at least 15 to 20 times. Plantar fasciitis exercise equipment and handout are very useful in treating the symptoms of the foot condition. Stretching the calf You could lie supine, raise one foot, and then point your toes towards the floor. Do this daily forat least 15 to 20 times. The calf is connected to the heel and the balls of the foot, so you shouldalso exercise this also. Plantar fasciitis exercise equipment and handout usually mentions the importance of exercising the calf also. Flex the toes Sit comfortably and then flex your toes by pointing it towards the floor or towards your body. Thiswill relax and flex your foot and exercise your plantar fascia, the calf, and the Achilles tendon. The inability of the foot to stretch often causes the bunching up of the plantar fascia area leadingto the pain. Massaging the calf and the plantar fascia also helps a lot in alleviating the pain and preventing its recurrence. If you prefer standard plantar fasciitis exercise equipment and handout, then you canavail of this from legitimate sources. You can use the standard stretching device, the wheel, and the belt. These are all significant devices in treating the pain in the plantar fascia. Therapies covered by Dr Grimm today: 1. Supportive shoes, minimizing barefoot ambulation - helps to provide cushion, padding and supportto the ligament that is inflamed. Socks, flip flops, flats and some slippers are not typically sufficient to provide support. Shoes should be worn even in-doors 2. Insert/orthotics - inserts/orthotics that have an arch support built in to them provide further stress relief for the ligament. 3. Icing - using a frozen water bottle or orange, and rolling it along the bottom of the arch/heel can help to alleviate discomfort, and can act as a tissue massage to the painful, inflamed ligament.There is evidence that shows icing at least three times daily can be beneficial 4. Anti-inflammatory(NSAIDS)/Tylenol - anti-inflammatories, such as ibuprofen or Aleve, as well as Tylenol can be used to help decrease symptoms and improve pain levels. If you have high blood pressure, heart disease, stomach or kidney problems, use anti-inflammatories sparingly. Tylenol should notbe used if you have liver problems. If you can safely taken them, you can use NSAIDS and tylenol incombination for pain relief 5. Activity modifications - if there are certain things that you do, whether it's going barefoot orcertain shoes/activities, you should try to minimize those activities as much as possible until your symptoms are sufficiently resolved. Certainly, some activities, such as running on the treadmill, are easier to take a break from versus others, such as work or chores at home. If there are certainactivities that hurt your heel, and you keep doing those activities that hurt your heel, your heel will keep hurting. 6. Stretching - Stretching your Achilles and hamstring can help to decrease stress on the plantar fascia. Hold each stretch for 10 seconds. Stretch 10 times per set, three sets per day. Morning, afternoon and evening. If your heel pain is very severe in the morning, consider doing the first set of stretches before you get out of bed. If these initial therapies are insufficient, we have our tier 2 therapies that can more aggressively work to improve your symptoms and get you back to the activities that you enjoy. OVER THE COUNTER INSERTS Most of these can be found at your local [employer], [employer], or online: Phase Focusle Fit [employer] Power Step Walk-Fit ([employer]) *For heel pain* Arch Cradles *For heel pain* A good high quality over the counter insert should cost around $40-$50 Capsulitis/Metarasalgia - try adding a metatarsal pad on your inserts or find an insert with onebuilt in documented in this encounter Progress Notes * Alonzo Grimm DPM - 01/06/2024 10:00 AM CDT Foot & Ankle Surgery January 06, 2024 CC: Foot painL I was asked to see Jewels Mauricio regarding the chief complaint by: Dr. Paula Mendez HPI: Pt is a 58 year old female who presents with above complaint. Multiple month history of plantar lateral left foot pain. No injury noted. She has pain with increased activities. She states symptoms are better with shoes. Rest for treatment ROS: Pos for CC. The patient denies current nausea, vomiting, chills, fevers, belly pain, calf pain, chest pain or SOB. Complete remainder of ROS is otherwise neg. VITALS: Vitals: 01/06/24 1002 BP: 124/70 Weight: 77.1 kg (170 lb) Height: 1.74 m (5' 8.5) PMH: No past medical history on file. SXHX: No past surgical history on file. MEDS: Current Outpatient Medications Medication Sig Dispense Refill ALPRAZolam (XANAX) 0.25 MG tablet Take 0.25 mg by mouth as needed for anxiety carbidopa-levodopa (SINEMET) 25-100 MG tablet Take 1.5 tablets by mouth 3 times daily lisinopril (ZESTRIL) 20 MG tablet Take 20 mg by mouth daily sertraline (ZOLOFT) 50 MG tablet Take 50 mg by mouth daily Pt takes 1.5 tablets for 75mg dose No current facility-administered medications for this visit. ALL: No Known Allergies FMH: No family history on file. SocHx: Social History Socioeconomic History Marital status: Spouse name: Not on file Number of children: Not on file Years of education: Not on file Highest education level: Not on file Occupational History Not on file Tobacco Use Smoking status: Not on file Smokeless tobacco: Not on file Substance and Sexual Activity Alcohol use: Not on file Drug use: Not on file Sexual activity: Not on file Other Topics Concern Not on file Social History Narrative Not on file Social Determinants of Health Financial Resource Strain: Not on file Food Insecurity: Not on file Transportation Needs: Not on file Physical Activity: Not on file Stress: Not on file Social Connections: Not on file Interpersonal Safety: Not on file Housing Stability: Not on file EXAMINATION: Gen: No apparent distress Neuro: A&Ox3, no deficits Psych: Answering questions appropriately for age and situation with normal affect Head: NCAT Eye: Visual scanning without deficit Ear: Response to auditory stimuli wnl Lung: Non-labored breathing on RA noted Abd: NTND per patient report Lymph: Neg for pitting/non-pitting edema BLE Vasc: Pulses palpable, CFT minimally delayed Neuro: Light touch sensation intact to all sensory nerve distributions without paresthesias Derm: There is a nucleated callus at the plantar lateral left midfoot with some level of discomfort MSK: There is pain on palpation at the plantar left fifth metatarsal base along the lateral band ofthe plantar fascia. The fifth metatarsal base is otherwise unremarkable. There is no peroneus brevis tendon pain. Calf: Neg for redness, swelling or tenderness Assessment: 58 year old female with plantar lateral left foot pain including nucleated callus and pain along the lateral band of the plantar fascia Medical Decision Making/Plan: Discussed etiologies, anatomy and options 1. Plantar lateral left foot pain including nucleated callus and pain along the lateral band of theplantar fascia -I personally reviewed and interpreted the patient's lower extremity history pertinent to today's visit, including imaging/labs, in preparation for initiating a treatment program. -Regarding the heel pain, the Plantar Fasciitis handout was dispensed and discussed. We talked about stretching, resting/activity modification, icing, NSAID/tylenol use as tolerated, inserts, supportive/comfortable shoes and minimizing shoeless walking. -discussed Achilles, plantar fascial and hamstring stretches -OTC insert information dispensed and discussed -The callus was debrided with a 15 blade x 1 without incident Follow up: 3 weeks or sooner with acute issues Patient's medical history was reviewed today Alonzo Grimm DPM FACFAS [facility] Podiatric Foot & Ankle Surgeon [facility] [phone] Disclaimer: This note consists of symbols derived from keyboarding, dictation and/or voice recognition software. As a result, there may be errors in the script that have gone undetected. Please consider this when interpreting information found in this chart. documented in this encounter Plan of Treatment Not on file documented as of this encounter Procedures Procedure Name Priority Date/Time Associated Diagnosis Comments ND TRIM HYPERKERATOTIC SKIN LESION, ONE Routine 01/06/2024 11:56 AM CDT Callus documented in this encounter Visit Diagnoses Diagnosis Callus- Primary Corns and callosities Chronic pain in left foot Pain in limb documented in this encounter Care Teams Renewable Energy Technician Relationship Specialty Start Date End Date Marlena Mendez PA-C [address] [place] [address] PCP - General 01/06/24 documented as of this encounter
--- OUTSIDE RECORDS SUMMARY | 2024-04-07 13:20 | XMS_ITS | Clinical Summary ---
Author Organization [facility] Address [place], [place] [address] Care Team Providers Care Hard Candy Spinner Name Role Phone Marlena Mendez PA-C Primary Care Provider [phone] Social History Tobacco Use Types Packs/Day Years Used Date Smoking Tobacco: Never Assessed Sex and Gender Information Value Date Recorded Sex Assigned at Not on file Gender Identity Not on file Sexual Orientation Not on file Plan of Treatment Health Maintenance Due Date Last Done Comments Tdap 02/11/1976 Depression screening for age 12+ 1977 HIV for age 15-65 02/11/1980 BMI (ht and wt on same day) for age 18+ 1983 Hepatitis C screening for ag e 18-79 1983 Tetanus booster 1985 Colonoscopy through age 75 2010 Lipids for age 45-75 2010 Mammogram for age 45-75 2010 Zoster (shingles) series for age 50+ (1 of 2) 2015 Pap test for age 21-65 10/28/2021 9, 10/28/2018 COVID-19 vaccine series ( season) 2024 12/02/2020, 11/11/2020 Influenza for age 50-64 03/22/2024 Pneumococcal series for age 6-64 Aged Out No longer eligible b ased on patient's age to complete this topic Procedures Procedure Name Priority Date/Time Associated Diagnosis Comments RECLAMATION ENGINEER THIN PREP PAP SCREEN IMAGED Routine 10/28/2018 8:30 AM CDT from Last 3 Months or Most Recently Relevant to Health Maintenance Results * RECLAMATION ENGINEER THIN PREP PAP SCREEN IMAGED (10/28/2018 8:30 AM CDT) Case Report Gynecologic Cytology Report ? Case: [id number] ? Authorizing Provider: ??Marlena Mendez PA-C ? Collected: ? 10/28/2018 0830 ? Ordering Location: ? [facility] ?Received: ?10/31/2018 1404 ? First Screen: ?Violeta Silver ? Specimen: ?RECLAMATION ENGINEER ThinPrep Vial Screening, Cervical/Vaginal ? 11/10/2018 10:37 AM CDT [facility]- ENTRAL [facility]AT[facility] INTERPRETATION/ RESULT NEGATIVE FOR INTRAEPITHELIAL LESION OR MALIGNANCY (NIL) (none) 11/10/2018 10:37 AM CDT [facility] IMEN ADEQUACY Satisfactory for evaluation Endocervical component present 11/10/2018 10:37 AM CDT [facility] ENTRAL LAB[facility]ATORY HPV REQUEST HPV and PAP 11/10/2018 10:37 AM CDT [facility] Date of LMP 11/10/2018 10:37 AM CDT [facility] Comment:year ago Last Pap Date 10/18/2015 11/10/2018 10:37 AM CDT [facility]- [facility]TRLA LABORATORY Last Pap Result NIL 9 10:37 AM CDT [facility] Menstrual Status 11/10/2018 10:37 AM CDT [facility] Comment:menopause Automated Review Successful 11/10/2018 10:37 AM CDT [facility] Comment:Specimen processed s uccessfully by automated tar processing technician device, TelepathyPrep Imaging System, [employer] ANCILLARY TESTING RECLAMATION ENGINEER HPV Ordered, Please see separate report 11/10/2018 10:37 AM CDT [facility] Note The pap test is a screening technique, not a diagnostic procedure. ??It is used primarily to screen for squamous cancers and precursor lesions. ??Published studies have shown that it is subject to both false negative and false positive results. ??The pap test should not be used as the sole means to diagnose or exclude pre-malignant and malignant lesions. Cytology is screened and interpreted at [facility] - [address], [place] [address] and [facility] - [address]; [place] [address] and [facility] - [address]; [place] [address] and [facility] [address]; [place] [address] 11/10/2018 10:37 AM CDT [facility] Other (Cervical/Vagina l) 10/28/2018 8:30 AM CDT 10/31/2018 2:04 PM CDT Marlena Mendez PA-C PATHOLOGY/CYTOLOGY [facility] [address] [place] [address], [place] from Last 3 Months or Most Recently Relevant to Health Maintenance Care Teams Hard Candy Spinner Relationship Specialty Start Date End Date Marlena Mendez PA-C [address] [place] [address] PCP - General Physician Personal Lines Appraiser 12/26/22
--- OUTSIDE RECORDS SUMMARY | 2024-04-07 13:20 | XMS_ITS | Referral Summary ---
Author Organization [facility] Address [address] [place] [address] Care Team Providers Care Child Welfare Social Worker Name Role Phone Marlena Mendez PA-C Primary Care Provider [phone] Alonzo Larose DPM Unavailable [phone] Encounters Date Type Department Care Team Description 01/06/2024 Travel 01/06/2024 10:00 AM CDT Office Visit [facility] Podiatry [address] [facility] [address] [place] [address] Alonzo Larose DPM Callus (Primary Dx); Chronic pain in left foot from Last 3 Months Allergies No known active allergies Medications Medication Sig Dispensed Refills Start Date End Date Status lisinopril (ZESTRIL) 20 MG tablet Take 20 mg by mouth daily Active sertraline (ZOLOFT) 50 MG tablet Take 50 mg by mouth daily Pt takes 1.5 tablets for 75mg dose Active carbidopa-levodopa (SINEMET) 25-100 MG tablet Take 1.5 tablets by mouth 3 times daily Active ALPRAZolam (XANAX) 0.25 MG tablet Take 0.25 mg by mouth as needed for anxiety Active Active Problems No known active problems Social History Tobacco Use Types Packs/Day Years Used Date Smoking Tobacco: Never Assessed PHQ-2 Answer Date Recorded PHQ-2 Score 0 01/06/2024 Adolescent Education Answer Date Record ed Getting School Help Needed Not on file 01/05 Sex and Gender Information Value Date Recorded Sex Assigned at Not on file Gender Identity Not on file Sexual Orientation Not on file Last Filed Vital Signs Vital Sign Reading Time Taken Comments Blood Pressure 124/70 01/06/2024 10:02 AM CDT Pulse - - Temperature - - Respiratory Rate - - Oxygen Saturation - - Inhaled Oxygen Concentration - - Weight 77.1 kg (170 lb) 01/06/2024 10:02 AM CDT Height 174 cm (5' 8.5) 01/06/2024 10:02 AM CDT Body Mass Index 25.47 01/06/2024 10:02 AM CDT Plan of Treatment Not on file Procedures Procedure Name Priority Date/Time Associated Diagnosis Comments [place] TRIM HYPERKERATOTIC SKIN LESION, ONE Routine 01/06/2024 11:56 AM CDT Callus from Last 3 Months Care Teams Child Welfare Social Worker Relationship Specialty Start Date End Date Marlena Mendez PA-C [address] [place] [address] PCP - General 01/06/24 Alonzo Larose DPM [id number] [facility] [address] [place] [address] Assigned Musculoskeletal Provider 01/12/24
--- OUTSIDE RECORDS SUMMARY | 2024-04-07 13:20 | XMS_ITS | Clinical Summary ---
Author Organization [facility] Address [address] [place] [address] Care Team Providers Care Music Adapter Name Role Phone Marlena Mendez PA-C Primary Care Provider [phone] Alonzo Larose DPM Unavailable [phone] Allergies No known active allergies Medications Medication [...] Active Active Problems No known active problems Encounters Date Type Department Care Team Description 01/06/2024 10:00 AM CDT Office Visit [facility] Pod[facility] [address] [facility] [address] [place] [address] Alonzo Larose DPM Callus (Primary Dx); Chronic pain in left foot 01/06/2024 Travel from Last 3 Months Social History Tobacco Use Types Packs/Day Years [...] 01/06/2024 10:02 AM CDT Plan of Treatment Health Maintenance Due Date Last Done Comments ADVANCE CARE PLANNING 1965 ANNUAL REVIEW OF HM ORDERS 1965 CT COLONOGRAPHY 1965 FIT 1965 FLEX SIG 1965 GLUCOSE 1965 MAMMO SCREENING 1965 YEARLY PREVENTIVE VISIT 1965 COLONOSCOPY 1975 HIV SCREENING 02/11/1980 HEPATITIS C SCREENING 1983 HEPATITIS B IMMUNIZATION (1 of 3 - 19+ 3-dose series) 02/11/1984 LIPID 2005 DTAP/TDAP/TD IMMUNIZATION (1 - Tdap) 05/06/2014 05/05/2014, 01/19/2003 ZOSTER IMMUNIZATION (1 of 2) 2015 PAP 10/28/2021 10/28/2018 COVID-19 Vaccine (3 - 2023-2 5 season) 2024 12/02/2020, 11/11/2020 INFLUENZA VACCINE (#1) 2024 COLORECTAL CANCER SCREENING 03/29/2024 sDNA (Cologuard) 03/29/2024 03/29/2021 PHQ-2 (once per calendar year) Completed 01/06/2024 HPV IMMUNIZATION Aged Out No longer e ligible based on patient's age to complete this topic MENINGITIS IMMUNIZATION Aged Out No l onger eligible based on patient's age to complete this topic Pneumococcal Vaccine: Pediatrics (0 to 5 Years) and At-Risk Patients (6 to 64 Years) Aged Out No longer eligible b ased on patient's age to complete this topic RSV MONOCLONAL ANTIBODY Aged Out No l onger eligible based on patient's age to complete this topic Procedures Procedure Name Priority Date/Time Associated Diagnosis Comments HI TRIM HYPERKERATOTIC SKIN LESION, ONE Routine 01/06/2024 11:56 AM CDT Callus from Last 3 Months Care Teams Music Adapter Relationship Specialty Start Date End Date Marlena Mendez PA-C [address] [place], [place] [id number] PCP - General 01/06/24 Alonzo Larose DPM [id number] [address] Assigned Musculoskeletal Provider 01/12/24
== END 2024-04-07 13:17 | disposition home or self-care (01) ==
LOC: FRMREF 13:18
PROVIDERS: PCP Physician Assistant Medical; Visit Provider Physician Assistant Medical
DX: Z12.4 Encounter for screening for malignant neoplasm of cervix (principal)
CPT/HCPCS: 88141; 88142

== ENCOUNTER 2024-04-28 06:30 | Outpatient (CLI) | payer BC, SELFPAY ==
--- OUTSIDE RECORDS SUMMARY | 2024-04-28 06:32 | XMS_ITS | Clinical Summary ---
Author Organization [facility] Address [address] [place] [address] Care Team Providers Care Corporate Intern Name Role Phone Marlena Mendez PA-C Primary Care Provider [phone] Alonzo Larose DPJefferson Unavailable [phone] Allergies No known active allergies Medications Medication [...] CANCER SCREENING 03/29/2024 sDNA (Cologuard) 03/29/2024 03/29/2021 RSV VACCINE (1 - 1-dose 75+ series) 02/11/2040 PHQ-2 (once per calendar year) Completed 01/06/2024 [...] on patient's age to complete this topic Care Teams Corporate Intern Relationship Specialty Start Date End Date Marlena Mendez PA-C [facility] [address] [place] [address] [place] [address] PCP - General 01/06/24 Alonzo Larose DPM [id number] [place] [address] Assigned Musculoskeletal Provider 01/12/24
--- OUTSIDE RECORDS SUMMARY | 2024-04-28 06:32 | XMS_ITS | Data Portability ---
Author Organization [place] - [facility], [facility] Address [address] [place] [address] [address] [place] [address] Assessment Encounter Date Assessment Date Assessment LastModified by Organization Details LastModified Time 12/31/2017 12/31/2017 Better overall today. Patient has been compliant with PT exercises. Added intraoral ice. Continue with all goals; emphasis on muscle tension seems to be more helpful than joint stretching. Short term goals to be met in weeks include: *Improve patient's awareness of muscle tension and muscle guarding habits to decrease pain. *Improve jaw ROM to 30-35 mm IO and 5-7 mm lateral excursion without deviation, noise or increased pain due to improved jaw control. *Decrease pain level by 50% due to improved muscle tension release and joint protection. custodial goals to be met in 3 months include: *Neutral head, neck and jaw posture 80% of the time to decrease jaw muscle strain in sitting *Improve jaw ROM to 40 mm IO and 10 mm lateral excursion without deviation, noise or pain to tolerate wide opening with ease. *Decrease pain level by 80% due to improved muscle stabilization and control with ADLs. *Kasson with HEP and self care strategies to manage symptoms and discharge PT. *Pain free chewing with moderately hard diet 80% of the time due to improved jaw muscle endurance and control. [email or web address] Not available 01/01/2018 13:18:42 01/08/2018 01/08/2018 Progressed to combo exercises for endurance training in opening. Emphasized painfree R laterotrusion to decrease R pterygoid guarding. ROM better overall with improved straight mechanics and ROM. Taper to 2 week followup. Continue with all goals. Short term goals to be met in weeks include: *Improve patient's awareness of muscle tension and muscle guarding habits to decrease pain. *Improve jaw ROM to 30-35 mm IO and 5-7 mm lateral excursion without deviation, noise or increased pain due to improved jaw control. *Decrease pain level by 50% due to improved muscle tension release and joint protection. custodial goals to be met in 3 months include: *Neutral head, neck and jaw posture 80% of the time to decrease jaw muscle strain in sitting *Improve jaw ROM to 40 mm IO and 10 mm lateral excursion without deviation, noise or pain to tolerate wide opening with ease. *Decrease pain level by 80% due to improved muscle stabilization and control with ADLs. *Kasson with HEP and self care strategies to manage symptoms and discharge PT. *Pain free chewing with moderately hard diet 80% of the time due to improved jaw muscle endurance and control. [email or web address] Not available 01/08/2018 17:18:50 01/23/2018 01/23/2018 Overall seems to be managing very well. Laterotrusion ROM improved to 8 mm painfree to the L after therapy. Focused today on muscle release and discussed self care and management. Reports functional improvement. Patient will be seeing Dr. Clinton in a few weeks and they will reassess. Patient has met all short term goals and intermittently meets correction goals. Patient is getting closer to independently management; assess at the next visit. Short term goals to be met in weeks include: *Improve patient's awareness of muscle tension and muscle guarding habits to decrease pain. *Improve jaw ROM to 30-35 mm IO and 5-7 mm lateral excursion without deviation, noise or increased pain due to improved jaw control. *Decrease pain level by 50% due to improved muscle tension release and joint protection. 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 *Decrease pain level by 80% due to improved muscle stabilization and control with ADLs. *Kasson with HEP and self care strategies to manage symptoms and discharge PT. *Pain free chewing with moderately hard diet 80% of the time due to improved jaw muscle endurance and control. [email or web address] Not available 01/23/2018 14:23:47 02/07/2018 02/07/2018 I reinforced the self-care strategies and encouraged compliance with those. Splint fit was reviewed and Adjustments were made to the splint to improve fit and occlusal comfort. I reviewed outcomes from the visits with PT, I recommended continued care with the physical therapy home exercise program. A refill was authorized for Methocarbamol 500 mg without changes to the dosage. The risks and benefits with the medication was reviewed with the patient. Total visit time 25 minutes. I spent 15 minutes on counselling and co-ordination of care. Not available 02/11/2018 15:36:34 05/12/2018 05/12/2018 I reinforced the self-care strategies and encouraged compliance with those. Splint fit was reviewed and Adjustments were made to the splint to improve fit and occlusal comfort. I reviewed outcomes from the visits with PT, I recommended continued care with the physical therapy home exercise program. Reinforced daily intake of muscle relaxants for two weeks, nightly prior to returning to care. Total visit time 25 minutes. I spent 15 minutes on counselling and co-ordination of care. Not available 05/12/2018 10:40:50 Plan of Treatment Reminders Order Date Submit Date Provider Last Modified By Organization Details Last Modified Time Details Appointments None recorded. Lab None recorded. Referral None recorded. Procedures None recorded. Surgeries None recorded. Imaging None recorded. Medication Orders methocarba mol 500 mg tablet 2017 018 INTERFACE [id number], [address] , [place], [address], 8 12:26:03 Patient TargetsNo targets recorded. Patient Instructions Encounter Date Encounter Id Patient Instructions Last Modified By Organization Details Last Modified Time 12/31/2017 [id number] Plan: Continue with muscle work including intraoral MFR if helpful. Check dynamic resistance in all directions and SCM stretching. Goal review next after more time on her own - reassess, discuss POC. [email or web address] Not available 01/01/2018 13:19:53 01/08/2018 [id number] Plan: Continue with muscle work including intraoral MFR if helpful. Check dynamic resistance in all directions and SCM stretching. Goal review next after more time on her own - reassess, discuss POC. [email or web address] Not available 01/08/2018 10:05:19 01/23/2018 [id number] Plan: Patient is nearly ready to continue independently - will RTC as needed, otherwise D/C PT. 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 Procedures Surgical History Date Name Laterality Status Provider Name and Address Organization Details Recorded Time 01/24/20 18 45902: Therapeutic Exercise completed Bharti Wills [facility] 01/23/2018 14:18:15 01/24/20 18 78591: Neuromuscular Re-Education completed Bharti Wills [facility] 01/23/2018 14:18:15 01/09/20 18 [id number]: Therapeutic Exercise completed Bharti Wills [facility] 01/08/2018 10:05:19 01/09/20 18 59684: Neuromuscular Re-Education completed Bharti W[facility] 01/08/2018 10:05:19 01/01/20 18 68786: Therapeutic Exercise completed Bharti Wills [facility] 12/31/2017 11:39:40 01/01/20 18 85711: Neuromuscular Re-Education completed Bharti Wills [facility] 12/31/2017 11:39:40 12/28/19 18 76864: Therapeutic Exercise completed Bharti Wills [facility] 12/27/2017 12:36:38 12/28/19 18 57118: Neuromuscular Re-Education completed Bharti Wills [facility] 12/27/2017 13:01:40 12/21/19 18 05958: Ultrasound (1:1) completed Bharti Wills [facility] 12/20/2017 12:39:29 12/21/19 18 83141: Therapeutic Exercise completed Bharti Chandlergiovanni [facility] 12/20/2017 12:39:29 12/14/19 18 25927: Ultrasound (1:1) completed Bharti Chandlergiovanni [facility] 12/13/2017 16:11:25 12/14/19 18 55692: Therapeutic Exercise completed Bharti Chandlergiovanni [facility] 12/13/2017 12:04:14 12/07/19 18 Oral appliance completed [facility] 12/06/2017 10:56:04 12/07/19 18 53120 PT Eval - Low Complexity completed Bharti Chandlergiovanni [facility] 12/06/2017 12:01:53 12/07/19 18 09781: Ultrasound (1:1) completed Bharti Chandlergiovanni [facility] 12/06/2017 12:01:44 12/07/19 18 09296: Therapeutic Exercise completed Bharti Chandlergiovanni [facility] 12/06/2017 11:06:24 02/06/19 95 Cholecystectomy completed [facility] 11/20/2017 10:53:05 08/18/18 95 Caesarean Section completed [facility] 11/20/2017 10:53:05 Imaging Results None recorded. Procedure Notes None recorded. Medical Equipment None Reported. Allergies No known drug allergies Medications Name Sig Start Date Stop Date Status Note LastModified by Organization Details LastModified Time methocarbamol 500 mg tablet TAKE 2 TABLETS BY MOUTH EVERY DAY AT BEDTIME 2017 active Not Available Not Available Not Avai lable Vitals Date Recorded Body height Body mass index (BMI) Body weight Heart rate Systolic blood pressure Diastolic blood pressure Provider Name and Address Organization Details Last Updated DateTime 8 175.26 cm 30.6 kg/m2 69135.6 2 g 56 /min 156 mm[Hg] 99 mm[Hg] Jd Velasquez [facility] 8 12:13:21 Date Recorded Body height Body mass index (BMI) Body weight Heart rate Systolic blood pressure Diastolic blood pressure Provider Name and Address Organization Details Last Updated DateTime 8 175.26 cm 30.6 kg/m2 82390.6 2 g 70 /min 141 mm[Hg] 98 mm[Hg] Bennie Bautista [facility] 8 10:15:08 Social History Question Answer Notes LastModified by [email or web address] Medical Details LastModified Time Tobacco Smoking Status Never Smoker Lucero Clinton AMMON emery [facility] 11/20/2017 10:52:56 What Is Your Level Of Alcohol Consumption? Occasional Information not available 11/20/2017 Auto Related Injury? No Information not available 11/20/2017 What Is Your Level Of Caffeine Consumption? Moderate Information not available 11/20/2017 Are You Currently Employed? Yes Information not available 11/20/2017 Currently No Information not available 11/20/2017 What Type Of Diet Are You Following? REGULAR Information not available 11/20/2017 Do You Reside In Or Have You Traveled To An Area Where Ebola Virus Transmission Is Active? 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 Unknown Information not available 11/20/2017 What Was The Date Of Your Most Recent Tobacco Screening? 05/12/2018 Information not available 02/12/2019 How Many Children Do You Have? 4 Information not available 11/20/2017 General Stress Level Medium Information not available 11/20/2017 Sex: Unknown Functional Status Question Answer Note LastModified by [email or web address] Medical Details LastModified Time What is your exercise level? Occasional Information not available 11/20/2017 Mental Status None recorded. Family History Nothing Reported. Medical History Condition Response Coronary Artery Disease N Gout N Other N MRSA N Head Trauma/Injury N COPD N Depression N Lung Disease N Glaucoma N Pneumonia N Pacemaker N Obstructive Sleep Apnea N Anxiety Disorder N Autoimmune disease N Muscle, Joint, or Bone Problems N Vision or Eye Problems N Arthritis N Acid Reflux (GERD) N Cancer N Stroke N Back Injury N High Cholesterol N Liver Disease N Organ Transplant N Rheumatoid Arthritis N Headaches N Fibromyalgia N Kidney Disease N Allergies/Hayfever N Parkinson's Disease N Post traumatic stress disorder (PTSD) N Migraines N Brain Tumors N Anemia N Multiple Sclerosis N Heart Attack ([place]) N Stomach Ulcers N Diabetes N Bleeding Disorder N Seizures/Epilepsy N Tuberculosis N AIDS/HIV N Dementia N Asthma N Substance Abuse N Vertigo N Sleep Disorder N Hepatitis N Heart Disease N Neuropathy N Pulmonary Embolism N Hypertension N Osteoporosis N Gynecological HistoryNo gynecological history recorded. Obstetrics History GPAL:G 0 P 0 0 0 0 Past Encounters Encounter ID Performer Location Encounter Start Date Encounter Closed Date Diagnosis/Indication Diagnosis SNOMED-CT Code Diagnosis ICD10 Code [id number] [facility] [place] [address] [place] [id number] 11/20/2017 10:23:45 11/20/2017 14:57:05 Arthralgia of temporomandibular joint 89148769 M26.621 Articular disc disorder of temporomandibular joint 41556530 M26.631 Myofascial pain 22608357 9 M79.1 [id number] [facility] [place] [address] [place] [id number] 12/06/2017 10:40:18 12/06/2017 11:58:48 Myofascial pain 467783503 M79.1 Articular disc disorder of temporomandibular joint 56380662 M26.631 [id number] Bharti Lugo [place] [address] [place] [id number] 12/06/2017 10:40:18 12/06/2017 11:58:48 Myofascial pain 502896670 M79.1 Articular disc disorder of temporomandibular joint 50285137 M26.639 [id number] Bharti Jones [address] [place] [id number] 12/13/2017 11:57:04 12/13/2017 16:14:27 Myofascial pain 697531755 M79.1 Articular disc disorder of temporomandibular joint 32280268 M26.639 [id number] Bharti Johann [place] [address] [place], [place] [id number] 12/20/2017 12:28:51 12/20/2017 13:47:27 Myofascial pain 891275645 M79.1 Articular disc disorder of temporomandibular joint 39853594 M26.639 [id number] Bharti Johann [place] [address] [place], [place] [id number] 12/27/2017 12:13:06 12/27/2017 12:53:05 Myofascial pain 634181549 M79.1 Articular disc disorder of temporomandibular joint 06041408 M26.639 [id number] Lucero Oz DDS [place] [address] [place], [place] [id number] 12/27/2017 12:13:06 12/27/2017 12:53:05 Articular disc disorder of temporomandibular joint 09963780 M26.631 Myofascial pain 55319457 9 M79.1 [id number] Bharti Johann [place] [address] [place], [place] [id number] 12/31/2017 11:34:59 12/31/2017 15:54:32 Myofascial pain 544381132 M79.1 Articular disc disorder of temporomandibular joint 06963633 M26.639 [id number] Bharti Johann [place] [address] [place] [id number] 01/08/2018 09:56:28 01/08/2018 10:39:48 Myofascial pain 729977651 M79.1 Articular disc disorder of temporomandibular joint 70931205 M26.639 [id number] Bharti [place]ills [place] [address] [place] [id number] 01/23/2018 10:35:14 01/23/2018 12:36:31 Myofascial pain 598320041 M79.1 Articular disc disorder of temporomandibular joint 93652070 M26.639 [id number] Lucero Oz DDS [place] [address] [place] [id number] 02/07/2018 12:03:37 02/07/2018 13:01:21 Articular disc disorder of temporomandibular joint 66774442 M26.631 Myofascial pain 79672234 9 M79.1 [id number] Lucero Oz DDS [place] [address] [place] [id number] 05/12/2018 10:07:41 05/12/2018 11:07:34 Myofascial pain 808709933 M79.10 Articular disc disorder of temporomandibular joint 07968876 M26.631 Health Concerns Section Related Observation LastModified by Organization Detai ls LastModified Time None Recorded Concern Status LastModified by Organization Details LastModified Time None Recorded Advance Directives Directive None Recorded Payers Encounter Date Sequence Insurance Name Policy Number Policy Head Covered Member ID Head Member ID Guarantor Name 12/31/2017 1 [place] [employer] 112 Khoa Mauricio [id number] Jewels Mauricio 01/08/2018 1 [place] 112 Khoa Mauricio [id number] Jewels Mauricio 01/23/2018 1 [place] 112 Khoa Mauricio [id number] Jewels Mauricio 02/07/2018 1 [place] 112 Khoa Mauricio [id number] Jewels Mauricio 05/12/2018 1 [place] 112 Khoa Mauricio [id number] Jewels Mauricio Notes Date Note Type Note Provider Name and Address Organization Details Recorded Time 12/31/2017 text/html HPI Notes: Overa ll has had less tightness. Pain still present with wide opening or clenching on the R. Has more pain with moving side to side at the end ranges. Avoiding harder foods. Has done the new exercise - only 4 days ago. Had a little soreness after the last visit but it wasn't too bad. Thinks that the opening is a bit farther without pain. [place] Zheng [facility] 01/01/2018 13:20:10 01/08/2018 text/html HPI Notes: Has been a little up and down - one morning woke early and had jaw pain from taking the mouthguard. The jaw feels like it's opening a bit farther, though it does vary. Still does avoid hard/crunchy/chewy foods. Less limitation with chewing but still avoids raw vegetables. SHANA Zheng [facility] 01/08/2018 17:20:21 01/23/2018 text/html HPI Notes: Feeli ng better overall - has more range of motion without pain. Most pain occurs with biting down/chewing hard foods and with wide opening. The R deep masseter is less tender as well. Working on the new exercises. Feels more aware and mindful of habits. SHANA Zheng [facility] 01/23/2018 14:25:36 02/07/2018 text/html HPI Notes: Amira teixeira reports that the jaw pain, located on the right-side has Improved since the previous visit. Patient reports the quality of this pain as sharp . Patient rates the pain severity as 4-7 on a scale of 0 to 10. Aggravating factors include chewing, yawning,opening moouth wide, teeth clenching, stress .Alleviating factors include splint therapy, physical therapy,.Patient is currently engaged in treatments including self-care, medication, PT. Patient has seen the physical therapist 6 times. SHANA Ortiz DDS [facility] 02/11/2018 15:36:46 05/12/2018 text/html HPI Notes: Amira teixeira reports that the jaw pain, located on the right-side has Improved since the previous visit. Patient reports the quality of this pain as tight . Patient rates the pain severity as 2-3 on a scale of 0 to 10. Aggravating factors include opening mouth wide, yawning, clenching, stress .Alleviating factors include splint therapy.Patient is currently engaged in treatments including self-care. Patient reports that lately she is starting to notice some pain, so she is doing at home PT. Patient reports stress related aggravation of pain. [place] Ortiz DDS - [facility] 05/12/2018 10:41:11 OBGyn Episode No OBEpisode recorded.
--- OUTSIDE RECORDS SUMMARY | 2024-04-28 06:32 | XMS_ITS | Referral Summary ---
Author Organization [facility] Address [address] [place] [address] Care Team Providers Care Business Systems Administrator Name Role Phone Marlena Mendez PA-C Primary Care Provider [phone] Alonzo Larose DPJefferson Unavailable [phone] Allergies No known active allergies Medications Medication [...] CDT Plan of Treatment Not on file Care Teams Business Systems Administrator Relationship Specialty Start Date End Date Marlena Mendez PA-C [address] [place] [address] PCP - General 01/06/24 Alonzo Larose DPM [address] [address] Assigned Musculoskeletal Provider 01/12/24
--- OUTSIDE RECORDS SUMMARY | 2024-04-28 06:32 | XMS_ITS | Clinical Summary ---
Author Organization [email or web address] [facility] & [facility] Address [place], [place] [address] Care Team Providers Care Bailing Machine Operator Name Role Phone Marlena Mendez PA-C Primary Care Provider [phone] Social History Tobacco Use Types Packs/Day Years [...] Procedure Name Priority Date/Time Associated Diagnosis Comments PACKAGER THIN PREP PAP SCREEN IMAGED Routine 10/28/2018 8:30 AM CDT from Last 3 Months or Most Recently Relevant to Health Maintenance Results * PACKAGER THIN PREP PAP SCREEN IMAGED (10/28/2018 8:30 AM CDT) Case Report Gynecologic Cytology Report ? Case: [id number] ? Authorizing Provider: ??Marlena Mendez PA-C ? Collected: ? 10/28/2018 0830 ? Ordering Location: ? [facility] ?Received: ?10/31/2018 1404 ? First Screen: ?Violeta Silver ? Specimen: ?PACKAGER ThinPrep Vial Screening, Cervical/Vaginal ? 11/10/2018 10:37 AM CDT [facility]- [facility]AL [facility] INTERPRETATION/ RESULT NEGATIVE FOR INTRAEPITHELIAL LESION OR MALIGNANCY (NIL) (none) 11/10/2018 10:37 AM CDT [facility] IMEN ADEQUACY Satisfactory for evaluation Endocervical component present 11/10/2018 10:37 AM CDT [facility] HPV REQUEST HPV and PAP 11/10/2018 10:37 AM CDT [facility] Date of LMP 11/10/2018 10:37 AM CDT [email or web address] Comment:year ago Last Pap Date 10/18/2015 11/10/2018 10:37 AM CDT [facility]- ENTRRI LABORATORY Last Pap Result NIL 9 10:37 AM CDT [facility]- [facility] Menstrual Status 11/10/2018 10:37 AM CDT [facility] Comment:menopause Automated Review Successful 11/10/2018 10:37 AM CDT [facility] Comment:Specimen processed s uccessfully by automated knot cutter device, [employer] MediaPrep Imaging System, [employer] ANCILLARY TESTING PACKAGER HPV Ordered, Please see separate report 11/10/2018 10:37 AM CDT [facility] Note The pap test is a [...] lesions. Cytology is screened and interpreted at [facility] - [address], [place] [address] and [place] - [address]; [place] [address] and [facility] - [address]; [place] [address] and [facility] [address]; [place] [address] 11/10/2018 10:37 AM CDT [facility] Other (Cervical/Vagina l) 10/28/2018 8:30 AM CDT 10/31/2018 2:04 PM CDT Marlena Mendez PA-C PATHOLOGY/CYTOLOGY [facility] [address] [place] [address], [place] from Last 3 Months or Most Recently Relevant to Health Maintenance Care Teams Bailing Machine Operator Relationship Specialty Start Date End Date Marlena Mendez PA-C [address] [place] [address] PCP - General Physician Fiscal Accountant 12/26/22
--- NOTE | 2024-04-28 08:12 | W.ANESCHARGE ---
Anesthesia Charges Start Date/Time Anesthesia Start Date: 04/28/24 Anesthesia Start Time: 07:24 Stop Date/Time Anesthesia Stop Date: 04/28/24 Anesthesia Stop Time: 08:15
--- NOTE | 2024-04-28 08:19 | W.ANESCHARGE ---
Anesthesia Charges Start Date/Time Anesthesia Start Date: 04/28/24 Anesthesia Start Time: 07:24 Stop Date/Time Anesthesia Stop Date: 04/28/24 Anesthesia Stop Time: 08:15
== END 2024-04-28 06:31 | disposition home or self-care (01) ==
LOC: OP CLINIC 06:31
PROVIDERS: PCP Physician Assistant Medical; Visit Provider Surgery
DX: R19.5 Other fecal abnormalities (principal); D12.2 Benign neoplasm of ascending colon; K57.30 Diverticulosis of large intestine without perforation or abscess without bleeding
CPT/HCPCS: 00811; 45385; 88305; J2704

== ENCOUNTER 2024-06-02 15:20 | Outpatient (CLI) | payer BC, SELFPAY ==
--- OUTSIDE RECORDS SUMMARY | 2024-06-02 15:23 | XMS_ITS | Data Portability ---
Author Organization [place] - [facility] Address [address] [address] Assessment Encounter Date Assessment Date Assessment LastModified [...] improved muscle tension release and joint protection. jail goals to be met in 3 months include: *Neutral head, neck and jaw posture 80% of the time to decrease jaw muscle strain in sitting *Improve jaw ROM to 40 mm IO and 10 mm lateral excursion without deviation, noise or pain to tolerate wide opening with ease. *Decrease pain level by 80% due to improved muscle stabilization and control with ADLs. *Yoder with HEP and self care strategies to [...] improved muscle tension release and joint protection. jail goals to be met in 3 months include: *Neutral head, neck and jaw posture 80% of the time to decrease jaw muscle strain in sitting *Improve jaw ROM to 40 mm IO and 10 mm lateral excursion without deviation, noise or pain to tolerate wide opening with ease. *Decrease pain level by 80% due to improved muscle stabilization and control with ADLs. *Yoder with HEP and self care strategies to [...] all short term goals and intermittently meets terminal make up operator goals. Patient is getting closer to independently [...] improved muscle tension release and joint protection. intermission coordinator goals to be met in 3 months include: *Neutral head, neck and jaw posture 80% of the time to decrease jaw muscle strain in sitting *Improve jaw ROM to 40 mm IO and 10 mm lateral excursion without deviation, noise or pain to tolerate wide opening with ease. *Decrease pain level by 80% due to improved muscle stabilization and control with ADLs. *Yoder with HEP and self care strategies to [...] 500 mg tablet 2017 018 INTERFACE [id number], [address] , [place], [address], 8 12:26:03 Patient TargetsNo targets recorded. Patient Instructions Encounter Date Encounter Id Patient Instructions Last Modified By Organization Details Last Modified Time 12/31/2017 [id number] Plan: Continue with muscle work including intraoral MFR if helpful. Check dynamic resistance in all directions and SCM stretching. Goal review next after more time on her own - reassess, discuss POC. [email or web address] Not available 01/01/2018 13:19:53 01/08/2018 [id number] Plan: Continue with muscle work including intraoral MFR if helpful. Check dynamic resistance in all directions and SCM stretching. Goal review next after more time on her own - reassess, discuss POC. [email or web address] Not available 01/08/2018 10:05:19 01/23/2018 [id number] Plan: Patient is nearly ready to continue independently - will RTC as needed, otherwise D/C PT. johann Not available 01/23/2018 14:25:20 Reason for Referral None Reported. 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 Procedures Surgical History Date Name Laterality Status Provider Name and Address Organization Details Recorded Time 01/24/20 18 42798: Therapeutic Exercise completed Bharti Wills [facility] 01/23/2018 14:18:15 01/24/20 18 19463: Neuromuscular Re-Education completed Bharti Wills [facility] 01/23/2018 14:18:15 01/09/20 18 45616: Therapeutic Exercise completed Bharti Wills [facility] 01/08/2018 10:05:19 01/09/20 18 38982: Neuromuscular Re-Education completed Bharti Wills [facility] 01/08/2018 10:05:19 01/01/20 18 28052: Therapeutic Exercise completed Bharti Wills [facility] 12/31/2017 11:39:40 01/01/20 18 33523: Neuromuscular Re-Education completed Bharti Wills [facility] 12/31/2017 11:39:40 12/28/19 18 79228: Therapeutic Exercise completed Bharti Wills [facility] 12/27/2017 12:36:38 12/28/19 18 40696: Neuromuscular Re-Education completed Bharti Wills [facility] 12/27/2017 13:01:40 12/21/19 18 32987: Ultrasound (1:1) completed Bharti Wills [facility] 12/20/2017 12:39:29 12/21/19 18 42802: Therapeutic Exercise completed Bharti Wills [facility] 12/20/2017 12:39:29 12/14/19 18 33751: Ultrasound (1:1) completed Bharti Johann [facility] 12/13/2017 16:11:25 12/14/19 18 25790: Therapeutic Exercise completed Bharti Johann [facility] 12/13/2017 12:04:14 12/07/19 18 Oral appliance completed [facility] Oz DDS [facility] 12/06/2017 10:56:04 12/07/19 18 66792 PT Eval - Low Complexity completed Bharti Johann [facility] 12/06/2017 12:01:53 12/07/19 63472: Ultrasound (1:1) completed Bharti Johann [facility] 12/06/2017 12:01:44 12/07/19 31199: Therapeutic Exercise completed Bharti Wills [facility] 12/06/2017 11:06:24 02/06/19 95 Cholecystectomy completed [facility] Oz DDS [facility] 11/20/2017 10:53:05 08/18/18 95 Caesarean Section [facility] 11/20/2017 10:53:05 [...] Updated DateTime 8 175.26 cm 30.6 kg/m2 79980.6 2 g 56 /min 156 mm[Hg] 99 mm[Hg] Jd Velasquez [facility] 8 12:13:21 Date Recorded Body height Body mass index (BMI) Body weight Heart rate Systolic blood pressure Diastolic blood pressure Provider Name and Address Organization Details Last Updated DateTime 8 175.26 cm 30.6 kg/m2 97782.6 2 g 70 /min 141 mm[Hg] 98 mm[Hg] Bennie Bautista [facility] 8 10:15:08 Social History Question Answer Notes LastModified by Organizat ion Details LastModified Time Tobacco Smoking Status Never Smoker Lucero Clinton DDS rupert, [facility] 11/20/2017 10:52:56 [...] Functional Status Question Answer Note LastModified by Organizat ion Details LastModified Time What is your exercise level? Occasional Information not available 11/20/2017 Mental Status None recorded. Family History Nothing Reported. Medical History Condition Response Coronary Artery Disease N Other N Gout N MRSA N Head Trauma/Injury N Glaucoma N Lung Disease N Depression N COPD N Pneumonia N Pacemaker N Obstructive Sleep Apnea N Anxiety Disorder N Muscle, Joint, or Bone Problems N Autoimmune disease N Vision or Eye Problems N Arthritis N Acid Reflux (GERD) N Cancer N Stroke N Back Injury N High Cholesterol N Liver Disease N Organ Transplant N Rheumatoid Arthritis N Fibromyalgia N Headaches N Kidney Disease N Allergies/Hayfever N Parkinson's Disease N Post traumatic stress disorder (PTSD) N Migraines N Brain Tumors N Anemia N Multiple Sclerosis N Heart Attack (ND) N Stomach Ulcers N Diabetes N Bleeding [...] Diagnosis/Indication Diagnosis SNOMED-CT Code Diagnosis ICD10 Code [id number] Lucero Oz [place] [address] [place] [id number] 11/20/2017 10:23:45 11/20/2017 14:57:05 Arthralgia of temporomandibular joint 99630781 M26.621 Articular disc disorder of temporomandibular joint 77666963 M26.631 Myofascial pain 32482604 9 M79.1 [id number] [facility] [place] [address] [place] [id number] 12/06/2017 10:40:18 12/06/2017 11:58:48 Myofascial pain 669998158 M79.1 Articular disc disorder of temporomandibular joint 10723240 M26.631 [id number] Bharti Jurado [address] [place] [id number] 12/06/2017 10:40:18 12/06/2017 11:58:48 Myofascial pain 498935737 M79.1 Articular disc disorder of temporomandibular joint 28909511 M26.639 [id number] Bharti Lugo e [address] [place] [id number] 12/13/2017 11:57:04 12/13/2017 16:14:27 Myofascial pain 496211164 M79.1 Articular disc disorder of temporomandibular joint 45418014 M26.639 [id number] Bharti Johann [place] [address] [place] [id number] 12/20/2017 12:28:51 12/20/2017 13:47:27 Myofascial pain 623882265 M79.1 Articular disc disorder of temporomandibular joint 64641438 M26.639 [id number] Bharti Chandlergiovanni [place] [address] [place] [id number] 12/27/2017 12:13:06 12/27/2017 12:53:05 Myofascial pain 531753726 M79.1 Articular disc disorder of temporomandibular joint 57683666 M26.639 [id number] Lucero Oz DDS [place] [address] [place] [address] 12/27/2017 12:13:06 12/27/2017 12:53:05 Articular disc disorder of temporomandibular joint 32148317 M26.631 Myofascial pain 93334223 9 M79.1 [id number] Bharti Johann [place] [address] [place] [id number] 12/31/2017 11:34:59 12/31/2017 15:54:32 Myofascial pain 453743860 M79.1 Articular disc disorder of temporomandibular joint 24968664 M26.639 [id number] Bharti Johann [place] [address] [place] [id number] 01/08/2018 09:56:28 01/08/2018 10:39:48 Myofascial pain 468958002 M79.1 Articular disc disorder of temporomandibular joint 61123722 M26.639 [id number] Bharti Kahnert [place] [address] [place] [id number] 01/23/2018 10:35:14 01/23/2018 12:36:31 Myofascial pain 323574886 M79.1 Articular disc disorder of temporomandibular joint 63273194 M26.639 [id number] Lucero Oz DDS [place] [address] [place], [place] [id number] 02/07/2018 12:03:37 02/07/2018 13:01:21 Articular disc disorder of temporomandibular joint 22004315 M26.631 Myofascial pain 74154097 9 M79.1 [id number] Lucero Oz DDS [place] [address] [place] [id number] 05/12/2018 10:07:41 05/12/2018 11:07:34 Myofascial pain 551300055 M79.10 Articular disc disorder of temporomandibular joint 09008004 M26.631 Health Concerns Section Related Observation LastModified by Organization Detai ls LastModified Time None Recorded Concern Status LastModified by Organization Details LastModified Time None Recorded Advance Directives Directive None Recorded Payers Encounter Date Sequence Insurance Name Policy Number Policy Head Covered Member ID Head Member ID Guarantor Name 12/31/2017 1 [place] [employer] 112 Khoa Mauricio [id number] Jewels Mauricio 01/08/2018 1 [place] 112 Khoa Mauricio [id number] Jewels Mauricio 01/23/2018 1 [place] 112 Khoa Mauricio [id number] Jewels Mauricio 02/07/2018 1 [place] 112 Khoa Mauricio [id number] Jewels Mauricio 05/12/2018 1 [place] 112 Khoa Mauricio [id number] Jewels Mauricio Notes Date Note Type Note [...] opening is a bit farther without pain. Bharti emery [facility] 01/01/2018 13:20:10 01/08/2018 text/html HPI Notes: Has been a little up and down - one morning woke early and had jaw pain from taking the mouthguard. The jaw feels like it's opening a bit farther, though it does vary. Still does avoid hard/crunchy/chewy foods. Less limitation with chewing but still avoids raw vegetables. Bharti emery [facility] 01/08/2018 17:20:21 01/23/2018 text/html HPI Notes: Feeli ng better overall - has more range of motion without pain. Most pain occurs with biting down/chewing hard foods and with wide opening. The R deep masseter is less tender as well. Working on the new exercises. Feels more aware and mindful of habits. Bharti emery [facility] 01/23/2018 14:25:36 02/07/2018 text/html HPI Notes: Elyreta lluvia reports that the jaw pain, located on [...] has seen the physical therapist 6 times. Lucero emery [facility] [...] aggravation of pain. SHANA Ortiz DDS - [facility] 05/12/2018 10:41:11 OBGyn Episode No OBEpisode recorded.
--- OUTSIDE RECORDS SUMMARY | 2024-06-02 15:23 | XMS_ITS | Referral Summary ---
Author Organization [facility] Address [address] [place] [address] Care Team Providers Care Voice And Data Technician Name Role Phone Marlena Mendez PA-C Primary Care Provider [phone] Alonzo Larose DPJefferson Unavailable [phone] Allergies No known active allergies Medications lisinopril (ZESTRIL) 20 MG tablet Take 20 mg by mouth daily Active sertraline (ZOLOFT) 50 MG tablet Take 50 mg by mouth daily Pt takes 1.5 tablets for 75mg dose Active carbidopa-levod opa (SINEMET) 25-100 MG tablet Take 1.5 tablets [...] School Help Needed Not on file 01/05 Comments Unknown Sex and Gender Information Value Date Recorded Sex Assigned at Not on file Legal Sex Female 2:10 PM CDT Gender Identity Not on file Sexual Orientation [...] CDT Plan of Treatment Not on file Insurance [employer] Care Teams Voice And Data Technician Relationship Specialty Start Date End Date Marlena Mendez PA-C [facility] [address] [place] [address] PCP - General 01/06/24 Alonzo Larose DPM [address] [address] Assigned Musculoskeletal Provider 01/12/24
--- OUTSIDE RECORDS SUMMARY | 2024-06-02 15:23 | XMS_ITS | Clinical Summary ---
Author Organization [email or web address] [facility] Address [place], [place] [address] Care Team Providers Care Rail Walker Name Role Phone Marlena Mendez PA-C Primary Care Provider [phone] Encounters Date Type Department Care Team Description 04/29/2024 Lab Requisition [facility] [phone] Mere Servin MD from Last 3 Months Social History Tobacco [...] 21-65 10/28/2021 9, 10/28/2018 COVID-19 vaccine series (2023- season) 2024 12/02/2020, 11/11/2020 Influenza for age 50-64 03/22/2024 Pneumococcal series for age 6-64 Aged Out No longer eligible b ased on patient's age to complete this topic Procedures Procedure Name Priority Date/Time Associated Diagnosis Comments LAB TRACKING EVENT Routine 04/28/2024 8: 00 AM CDT PATH TISSUE EXAM Routine 04/28/2024 8:00 AM CDT FLIGHT SURGEON THIN PREP PAP SCREEN IMAGED Routine 10/28/2018 8:30 AM CDT from Last 3 Months or Most Recently Relevant to Health Maintenance Results * LAB TRACKING EVENT (04/28/2024 8:00 AM CDT) Other (Other) Client Collect / Unknown 04/28/2024 8:00 AM CDT 04/29/2024 1:42 PM CDT Mere Servin MD LAB BILL ONLY [facility] [address] [place] [address], * PATH TISSUE EXAM (04/28/2024 8:00 AM CDT) Case Report Pathology Report ?Case: [id number] ? Authorizing Provider: ??Mere Servin MD ??Collected: ? 04/28/2024 0800 ? Ordering Location: ? [facility] ?Received: ?04/29/2024 1414 ? Pathologist: ? Oscar Gonzalez MD ? Specimen: ?Ascending Colon Polyp ? 04/30/2024 2:45 PM CDT [facility] Final Diagnosis A) COLON, ASCENDING, BIOPSY: 1. Normal colonic mucosa; a lymphoid aggregate is present (clinically,1 polyp) 2. Negative for serrated change, dysplasia, and malignancy 04/30/2024 2:45 PM CDT [facility] Clinical Information Ms. Mauricio is a 59 y.o. with a positive Cologuard test who undergoes colonoscopy. 04/30/2024 2:45 PM CDT [facility] Gross Description A) Received in formalin is a armendariz mucosal fragment measuring 10 mm in greatest dimension, which is entirely submitted in one cassette. It is labeled with the patient's name and designated ascending colon polyp. Radha Barnett 04/29/2024 2:22 PM 04/30/2024 2:45 PM CDT [facility] Microscopic Description The final diagnosis is based on microscopic examination of appropriate sections of all specimens. 04/30/2024 2:45 PM CDT [facility] Additional Information Interpreted at [facility] - [address], [place] [address] 04/30/2024 2:45 PM CDT [facility] Other (Ascending Colon Polyp) 04/28/2024 8:00 AM CDT 04/29/2024 2:14 PM CDT Mere Servin MD PATHOLOGY/[facility] [address] [place] [address], * FLIGHT SURGEON THIN PREP PAP SCREEN IMAGED (10/28/2018 8:30 AM CDT) Case Report Gynecologic Cytology Report ? Case: [id number] ? Authorizing Provider: ??Marlena Mendez PA-C ? Collected: ? 10/28/2018 0830 ? Ordering Location: ? [facility] ?Received: ?10/31/2018 1404 ? First Screen: ?Violeta Silver ? Specimen: ?FLIGHT SURGEON ThinPrep Vial Screening, Cervical/Vaginal ? 11/10/2018 10:37 AM CDT [facility] INTERPRETATION/ RESULT NEGATIVE FOR INTRAEPITHELIAL LESION OR MALIGNANCY (NIL) (none) 11/10/2018 10:37 AM CDT [facility]- ENTRAL LABORATORY IMEN ADEQUACY Satisfactory for evaluation Endocervical component present 11/10/2018 10:37 AM CDT [facility] HPV REQUEST HPV and PAP 11/10/2018 10:37 AM CDT [facility] LABORATORY-C ENTRAL LABORATORY Date of LMP 11/10/2018 10:37 AM CDT [facility]-C ENTRAL LABORATORY Comment:year ago Last Pap Date 10/18/2015 11/10/2018 10:37 AM CDT [facility] ENTRAL LABORATORY Last Pap Result NIL 9 10:37 AM CDT [facility] Menstrual Status 11/10/2018 10:37 AM CDT [facility] Comment:menopause Automated Review Successful 11/10/2018 10:37 AM [facility] Comment:Specimen processed s uccessfully by automated giver device, [employer]inPrep Imaging System, [employer] ANCILLARY TESTING FLIGHT SURGEON HPV Ordered, Please see separate report 11/10/2018 10:37 AM [facility] Note The pap test is a [...] lesions. Cytology is screened and interpreted at [facility] - [address], [place] [address] and [facility] - [address]; [place] [address] and [facility] - [address]; [place] [address] and [facility] [address]; [place] [address] 11/10/2018 10:37 AM T [facility] Other (Cervical/Vagina l) 10/28/2018 8:30 AM CDT 10/31/2018 2:04 PM CDT Marlena Mendez PA-C PATHOLOGY/CYTOLOGY [facility] [address] [place] [address], [place] from Last 3 Months or Most Recently Relevant to Health Maintenance Care Teams Rail Walker Relationship Specialty Start Date End Date Marlena Mendez PA-C [address] [place] [address] PCP - General Physician Furnace Repairer 12/26/22
--- OUTSIDE RECORDS SUMMARY | 2024-06-02 15:23 | XMS_ITS | Clinical Summary ---
Author Organization [facility] Address [address] [place] [address] Care Team Providers Care Cnc Machine Operator Name Role Phone Marlena Mendez PA-C Primary Care Provider [phone] Alonzo Larose DPJefferson Unavailable [phone] Allergies No known active allergies Medications lisinopril [...] on patient's age to complete this topic Insurance [employer] EMPL[employer]EE [employer] [facility] [employer] Care Teams Cnc Machine Operator Relationship Specialty Start Date End Date Marlena Mendez PA-C [facility] [address] [place] [address] PCP - General 01/06/24 Alonzo Larose DPM [address] [facility] [address] [place] [address] Assigned Musculoskeletal Provider 01/12/24
--- NOTE | 2024-06-02 15:40 | CRLHL7_ITS ---
For Patients: As a result of the Century Cures Act, medical imaging exams and procedure reports are released immediately into your electronic medical record. You may view this report before your referring provider. If you have questions, please contact your health care provider. BILATERAL SCREENING MAMMOGRAM WITH COMPUTER-AIDED DETECTION AND TOMOSYNTHESIS TECHNIQUE: CC and MLO views were obtained. These mammographic images have been obtained using full-field digital technique. These mammographic images were interpreted with the benefit of computer-aided detection. Breast Tomosynthesis was used in this interpretation. COMPARISON FILM: 06/26/22, 04/12/21, 12/10/19. FINDINGS: The breasts are heterogeneously dense, which may obscure small masses. IMPRESSION: There is no radiographic evidence for malignancy. ASSESSMENT: BI-RADS Category 1: Negative RECOMMENDATION: Routine screening mammogram in 1 year. A lay language report of this examination will be provided to the patient. Khoa Morris M.D. Diagnostic Radiologist [email or web address] SP/Dictated by: Khoa Morris MD @ 06/03/2024 9:46:00 AM (Electronically Signed)
== END 2024-06-02 15:21 | disposition home or self-care (01) ==
LOC: MAMMO 15:21
PROVIDERS: PCP Physician Assistant Medical; Visit Provider Physician Assistant Medical
DX: Z12.31 Encounter for screening mammogram for malignant neoplasm of breast (principal); R92.333 Mammographic heterogeneous density, bilateral breasts
CPT/HCPCS: 77063; 77067

== ENCOUNTER 2025-04-27 08:09 | Outpatient (CLI) | payer BC, SELFPAY | END 2025-04-27 08:10 | disposition home or self-care (01) | LOC: NFLDREF 04-29 14:33 | PROVIDERS: PCP Physician Assistant Medical; Referring Provider Physician Assistant Medical; Visit Provider Physician Assistant Medical | DX: I10 Essential (primary) hypertension (principal); Z00.00 Encounter for general adult medical examination without abnormal findings | CPT/HCPCS: 80053; 80061; 84443 ==